=== PATIENT | female | born 1945 | race Caucasian/White ===

== ENCOUNTER 2023-01-18 09:55 | Outpatient (CLI) | payer MEDICARE, BC, SELFPAY ==
--- NOTE | 2023-01-18 10:49 | ECG_ITS ---
Measurements Intervals [place] Rate: 66 P: 138 AL: 155 QRS: 64 QRSD: 89 T: 45 QT: 411 QTc: 431 Interpretive Statements ATRIAL FLUTTER/TACHYCARDIA WITH NORMAL VENTRICULAR RATE INCOMPLETE RIGHT BUNDLE BRANCH BLOCK DELAYED PRECORDIAL R/S TRANSITION BASELINE ARTIFACT- I, III, AVR, AVL ABNORMAL ECG NO PREVIOUS ECG AVAILABLE FOR COMPARISON Electronically Signed On 01-18-2023 11:48:44 ETHICS MANAGER by Wild Almanza D.O.
[2023-01-18 11:33] LABS: Albumin Level 4.7 g/dL (3.5-5.1); Anion Gap 6 mmol/L (8-16); Blood Urea Nitrogen 24 mg/dL (7-17); Calcium 9.9 mg/dL (8.4-10.2); Carbon Dioxide 26 mmol/L (22-30); Chloride 103 mmol/L (98-107); Estimated Glomerular Filt Rate 48; Glucose 145 mg/dL (65-110); Potassium 5.4 mmol/L (3.4-5.0); Sodium 135 mmol/L (137-145)
[2023-01-18 11:35] LABS: Urine Cotinine NEGATIVE
[2023-01-18 11:45] LABS: Basophils Percent Auto 0.8 % (0.2-1.2); Eosinophils Absolute Auto 0.1 K/mm3 (0-0.3); Eosinophils Percent Auto 2.6 % (0-4.4); Hematocrit 44.5 % (37.0-47.0); Hemoglobin 14.7 g/dL (12.0-15.0); Immature Granulocyte Absolute 0.02 K/mm3 (0.00-0.031); Immature Granulocyte Percent A 0.4 % (0-0.5); Lymphocytes Absolute Auto 1.25 K/mm3 (0.9-3.2); Lymphocytes Percent Auto 23.6 % (18.3-44.2); Mean Corpuscular Hemoglobin 30.5 pg (26-34); Mean Corpuscular Volume 92.3 fl (80-100); Mean Platelet Volume 10.9 fl (7.4-10.4); Monocytes Absolute Auto 0.4 K/mm3 (0.1-0.6); Monocytes Percent Auto 7.2 % (2.6-8.5); Neutrophils Absolute Auto 3.5 K/mm3 (1.3-6.7); Neutrophils Percent Auto 65.4 % (45.5-73.1); Platelet Count Result 225 k/mm3 (150-375); Red Blood Count 4.82 M/mm3 (4.2-5.4); Red Cell Distribution Width 13.9 % (11.5-14.5); White Blood Count 5.3 K/mm3 (4.5-10.0)
[2023-01-18 12:29] LABS: Hemoglobin A1C 6.6 % (<5.7)
== END 2023-01-18 09:56 | disposition home or self-care (01) ==
LOC: ANHSURGERY 10:05
PROVIDERS: PCP Family Medicine Adolescent Medicine; Visit Provider Orthopaedic Surgery
DX: M17.12 Unilateral primary osteoarthritis, left knee (principal); Z01.818 Encounter for other preprocedural examination; I45.10 Unspecified right bundle-branch block
CPT/HCPCS: 80048; 80307; 82040; 83036; 85025; 87081; 93005

== ENCOUNTER 2023-02-07 09:36 | Outpatient (CLI) | payer MEDICARE, BC, SELFPAY ==
--- NOTE | ~2023-02-07 | NM_ITS ---
EXAMINATION: NM lc stress w perfusion DATE: 02/07/2023 14:09 INDICATION: Abnormal electrocardiogram. TECHNIQUE: Rest images were obtained following intravenous administration of 10 mCi Tc99m tetrofosmin (Myoview). The patient was infused intravenously with Lexiscan (regadenoson). Then, 30.8 mCi Tc99m t etrofosmin (Myoview) was administered intravenously, and stress images were obtained. Data was recons tructed into short axis and horizontal and vertical long axis SPECT images. Gated SPECT images were a lso obtained. COMPARISON: None. FINDINGS: There is no definite reversible or fixed perfusion abnormality to suggest ischemia or infar ction. There is no segmental wall motion abnormality. Left ventricular ejection fraction measures > 70%. IMPRESSION: 1. No definite ischemia or infarct. 2. Normal left ventricular ejection fraction measuring >70%. Reviewed, dictated and finalized at location A.
--- NOTE | 2023-02-07 09:56 | EST_ITS ---
Patient Info Name: Marilu Quintanilla Age: 77 years : 1945 Gender: Female Ht: 66 in Wt: 167 lbs BSA: 1.89 m2 HR: 66 bpm BP: 195 / 99 mmHg Heart Rhythm: Sinus Rhythm Exam Date: 02/07/2023 10:57 AM Exam Location: [facility] Stress Patient Status: Outpatient Admit Date: 02/07/2023 Staff Ordering Physician: Ruel Barfield MD Attending Provider: Ruel Barfield MD Exercise Technologist: Azeb Ho CT Exercise Physician: Wild Almanza DO Exam Type: CA stress lc w NM Study Info Indications Z01.810 - Encounter for preprocedural cardiovascular examination R94.31 - Abnormal electrocardiogram ECG EKG A regadenoson stress test was performed. Summary 1. 1. Negative lexiscan stress test for ischemic ST changes by ECG criteria. 2. 2. Baseline hypertension. 3. 3. Short runs of atrial tachycardia with lexiscan. 4. 4. Nuclear scan to follow and will be reported separately. Please correlate with it. 5. 5. Patient informed of the above results. Protocol: Lexiscan Stress ECG Details Stage: REST Duration (min): 6 min : 15 sec HR (bpm): 62 SBP (mmHg): 199 DBP (mmHg): 101 Stage: REST Duration (min): 14 min : 26 sec HR (bpm): 66 SBP (mmHg): 195 DBP (mmHg): 99 Stage: STAGE 1 Duration (min): 1 min : 0 sec HR (bpm): 77 SBP (mmHg): 188 DBP (mmHg): 106 Stage: RECOVERY Duration (min): 1 min : 0 sec HR (bpm): 102 SBP (mmHg): 188 DBP (mmHg): 106 Stage: RECOVERY Duration (min): 2 min : 0 sec HR (bpm): 76 SBP (mmHg): 188 DBP (mmHg): 106 Stage: RECOVERY Duration (min): 3 min : 0 sec HR (bpm): 85 SBP (mmHg): 199 DBP (mmHg): 107 Stage: RECOVERY Duration (min): 4 min : 0 sec HR (bpm): 68 SBP (mmHg): 199 DBP (mmHg): 107 Stage: RECOVERY Duration (min): 4 min : 44 sec HR (bpm): 78 SBP (mmHg): 194 DBP (mmHg): 106 Stage: RECOVERY Duration (min): 5 min : 0 sec HR (bpm): 84 SBP (mmHg): 194 DBP (mmHg): 106 Stage: RECOVERY Duration (min): 5 min : 4 sec HR (bpm): 86 SBP (mmHg): 194 DBP (mmHg): 106 Rest HR: 66 bpm Peak HR: 114 bpm Rest Sys BP: 195 mmHg Peak Sys BP: 199 mmHg Max Pred HR: 143 bpm % Max Pred HR: 80 % Target HR: 122 bpm Max RPP: 22,686 bpm*mmHg Termination Reason: Completed protocol Cardiac Symptoms: Shortness of breath Total Time: 1 min : 0 sec Rest Pete BP: 99 mmHg Peak Pete BP: 107 mmHg Total Dose: 0.4 mg Resting ECG Sinus rhythm. Stress ECG No ST changes. Arrhythmias Short runs of atrial tachycardia with lexiscan. Report Signatures
== END 2023-02-07 09:37 | disposition home or self-care (01) ==
PROVIDERS: PCP Family Medicine Adolescent Medicine; Visit Provider Family Medicine Adolescent Medicine
DX: M17.0 Bilateral primary osteoarthritis of knee (principal); R94.31 Abnormal electrocardiogram [ECG] [EKG]; I10 Essential (primary) hypertension
CPT/HCPCS: 78452; 93017; A9502; J2785

== ENCOUNTER 2023-02-15 15:38 | Observation (INO) | payer MEDICARE, BC, SELFPAY ==
[2023-01-18 09:41] VITALS: BMI 27.2
--- NOTE | 2023-01-18 09:41 | PC.NURSE ---
PRE-OP INSTRUCTIONS, PLEASE READ CAREFULLY Report to the Outpatient Waiting Room, entrance under the green pavilion located off [facility], at time _1000_ on date _02/14/23_. Planned Procedure Time: _1200_. PACK A SMALL OVERNIGHT BAG AND LEAVE IN THE CAR ALONG WITH YOUR WALKER Time changes happen often and if your time is changed the preop area will call you the afternoon before. - You and your visitor will be asked to self-screen and do not enter if you have any COVID symptoms. - Only one visitor is requested with a max of two and NO children visitors are allowed at this time. - The patient visitor may be requested to leave or wait in car when not with patient due to distancing restrictions. - A mask is optional within the hospital at this time. -VISITING HOURS 8AM-8PM Patients may have clear liquids (water, carbonated beverages, clear teas, apple juice) until 3 hours prior to surgery (0900 AM) with a maximum of 20 ounces. - No food from midnight until time of surgery Take the following medications with a SIP of water the morning of surgery: _ATENOLOL, PAROXETINE_ DO NOT STOP ANY OF YOUR OTHER PRESCRIPTION MEDICATIONS PRIOR TO SURGERY ?EXCEPT THE FOLLOWING Medications to discontinue per DR. REYNOLDS - _DICLOFENAC 7 DAYS PRIOR TO SURGERY, Date to take last dose 02/06/23_ Please no make-up, nail azeri, hairspray, perfume, deodorant, or body powder the day of surgery. No jewelry (including any body piercings) or valuables the day of surgery, leave them at home. Please take a shower or bath the night before, or the morning of, surgery with an antibacterial soap. Wear comfortable, loose fitting clothing. - Jewelry must be removed prior to entering the operating room. Rings and piercings that are not removed may be cut off. - The hospital will not accept responsibility for valuables. - Please leave all valuables, including medications, at home the day of surgery. If you are going home after surgery, a licensed tow truck driver must drive you home. - NO public transportation without another adult if you receive anesthesia. - We recommend that an adult stay with you for 24 hours following discharge. - We also recommend that you do not drive, make important decision, drink alcoholic beverages, or take any drugs that were not prescribed by your health care provider for at least 24 hours after your discharge time. Follow any additional instructions given to you from your surgeon. TOTAL JOINT CLASS 01/24/23 @ [address] [place] [address] ENTRANCE 2 - LOWER LEVEL If you or anyone in your household have experienced Covid symptoms in the past week, please notify your surgeon or the nurse liaison at the phone number below for possible testing. Instructions given to _PATIENT_and asked if any additional questions and then verbalized understanding. Patient advised to call surgeon office or pre surgery nurse liaison [phone] if any additional questions.
[2023-01-18 10:15] VITALS: BP 180/90; PULSE 64; RESP 18; TEMP 36.1; O2SAT 100
--- NOTE | 2023-02-12 11:53 | PM.IMHP ---
H&P: HPI History of Present Illness Date/Time: 02/12/23 11:53 Chief Complaint: Left knee DJD Narrative: 77-year-old female patient of Dr. Sanchez who presents today for a left total knee arthroplasty. Patient has been having symptoms for over 3 years. She has been on diclofenac which initially helped with her knee pain but at this point nonsurgical treatment is not giving her improvement of her symptoms. She has severe medial compartment osteoarthritis in both knees. She is having difficulty with daily activities due to the pain in the knees. Patient has reached a point where she feels she wishes to proceed with total knee arthroplasty with a continued nonsurgical treatment Review of Systems Review of Systems: All systems reviewed & are unremarkable except as noted in HPI and below PMFSH Surgical History Surgical History History of lumbar surgery Family History Family History Mother Carcinoma of colon Diabetes mellitus Hypertension Other Depression Social History Social History Smoking status: Former smoker Tobacco type: cigarettes Second hand tobacco smoke exposure: No Additional smoking assessment comments: STATES 1/2PK/DAY/OFF-ON 5-6YRS/QUIT -DENIES ALL FORMS OF TOBACCO USE Alcohol intake: current Drinks per week: 1 Alcohol use details: WINE Substance use: never Substance use type: does not use Living arrangements: with family Additional living arrangements comments: LIVES WITH SON ASHKAN Occupation/Education: retired Gender identity (if verbalized by the patient): Female Sexual Orientation (if Verbalized by the Patient): Straight or Heterosexual Spiritual care concerns: No Agree to blood products: Yes Meds Home Medications and Allergies Home Medications Medication Instructions Recorded Confirmed Type diclofenac sodium 75 mg See Rx Instructions .Route 04/12/22 01/22/23 Rx tablet,delayed release .COMPLEX #180 tabs atorvastatin 40 mg tablet See Rx Instructions .Route 05/16/22 01/22/23 Rx .COMPLEX #90 tabs atenolol 50 mg tablet 50 mg PO DAILY #90 tabs 06/29/22 01/22/23 Rx metformin 500 mg tablet,extended 2,000 mg PO DAILY #360 tabs 08/03/22 01/22/23 Rx release 24 hr paroxetine HCl 20 mg tablet 40 mg PO BID 01/18/23 01/22/23 History Allergies Allergy/AdvReac Type Severity Reaction Status Date / Time naproxen Allergy Mild Rash Verified 01/22/23 10:29 Exam Narrative: 77-year-old female alert pleasant. She is 5 ft 4 167 lb. Her BMI is 28.7. She walks with a pronounce varus thrust. Range of motion of the left knee is from 10-130 degrees. There is a varus deformity notable. Hip range of motion is full without discomfort. There is no definite effusion in the knee. No edema in lower extremities. 2+ dorsalis pedis and absent posterior artery pulse. Normal sensation to left lower extremity. Resp: Auscultation: clear to auscultation bilaterally Cardio: Rate: regular rate Rhythm: regular rhythm Assessment and Plan Assessment and plan (1) Left knee DJD: Code(s): M17.12 - Unilateral primary osteoarthritis, left knee Status: Acute Plan 77-year-old female who has severe medial compartment osteoarthritis in both knees. At this point she feels she is ready to proceed with surgery. Surgical procedure as well as the risks and complications were discussed in detail all questions were answered and we will proceed. She will see her primary care doctor for pre-surgical clearance. Nasal swab was negative. Chem panel is all within normal limits creatinine 1.10 GFR was slightly decreased at 48. Hemoglobin A1c is 6.6. Hemoglobin is 14.7 and platelets are 225. Plan use Eliquis for DVT prophylaxis postoperatively.
--- NOTE | 2023-02-13 12:58 | WPDANESEPPF ---
Anes - Initial Pre Proc Eval Procedure: Operation Date: 02/14/23 12:00 Proposed Procedures p Left Total Knee Arthroplasty - Marcus White MD Date/Time: 02/13/23 12:58 Surgeon: Marcus White MD Pre Op Diagnosis: severe varus OA Left Knee Patient Data Age: 77 Gender: F Height: 1.68 m Weight: 76.5 kg Last Vital Signs Temp 36.1 C L 01/18/23 10:15 Pulse 64 01/18/23 10:15 Resp 18 01/18/23 10:15 BP 180/90 H 01/18/23 10:15 Pulse Ox 100 01/18/23 10:15 O2 Del Method Room Air 01/18/23 10:15 Allergies Allergy/AdvReac Type Severity Reaction Status Date / Time naproxen Allergy Mild Rash Verified 01/22/23 10:29 Home Medications Medication Instructions Recorded Confirmed Type diclofenac sodium 75 mg See Rx Instructions .Route 04/12/22 01/22/23 Rx tablet,delayed release .COMPLEX #180 tabs atorvastatin 40 mg tablet See Rx Instructions .Route 05/16/22 01/22/23 Rx .COMPLEX #90 tabs atenolol 50 mg tablet 50 mg PO DAILY #90 tabs 06/29/22 01/22/23 Rx metformin 500 mg tablet,extended 2,000 mg PO DAILY #360 tabs 08/03/22 01/22/23 Rx release 24 hr paroxetine HCl 20 mg tablet 40 mg PO BID 01/18/23 01/22/23 History Patient hx anesthesia problems: none Family hx anesthesia problems: none Results Review: All pre-operative results and documents have been reviewed as part of the pre-operative evaluation. [facility] Past Medical History Medical History (Updated 02/13/23 @ 12:59 by Humble Chaudhry MD) Hypertension Major depressive disorder, recurrent, mild Osteoarthritis of knees, bilateral Pure hypercholesterolemia, unspecified Type 2 diabetes mellitus without complications Surgical History Surgical History History of lumbar surgery Family History Family History Mother Carcinoma of colon Diabetes mellitus Hypertension Other Depression Social History Social History Smoking status: Former smoker Tobacco type: cigarettes Second hand tobacco smoke exposure: No Additional smoking assessment comments: STATES 1/2PK/DAY/OFF-ON 5-6YRS/QUIT -DENIES ALL FORMS OF TOBACCO USE Alcohol intake: current Drinks per week: 1 Alcohol use details: WINE Substance use: never Substance use type: does not use Living arrangements: with family Additional living arrangements comments: LIVES WITH SON ASHKAN Occupation/Education: retired Gender identity (if verbalized by the patient): Female Sexual Orientation (if Verbalized by the Patient): Straight or Heterosexual Spiritual care concerns: No Agree to blood products: Yes Anes - Eval Final PreProcedure Day of Procedure 02/13/23 12:58 Patient weight: overweight Heart: regular rate and rhythm Lungs: clear to auscultation and normal air movement Airway: Mallampati scale class II Neurological: alert and oriented Last oral intake: >/= 8 hours ASA classification: III Emergent: no Anesthetic plan: proceed Anesthesia type and monitoring: general LMA Results Review: All pre-operative results and documents have been reviewed as part of the pre-operative evaluation. Informed Consent: The patient's anesthetic plan and its attendant risks and benefits were discussed with the patient/family/POA. Questions were solicited and answers provided to the satisfaction of the patient/family/POA.
[2023-02-14] VITALS (9 sets, daily range): BP systolic 134–174; BP diastolic 85–102; PULSE 64–136; RESP 11–22; TEMP 36–36.6; O2SAT 95–100
[2023-02-14] MEDS: LACTATED RINGERS 1,000 ML 30 ML IV CONT ×2 (10:35→17:18)
[2023-02-14] MEDS: TRANEXAMIC ACID 1,000MG/ISO100 1,000 MG/100 ML BAG 200 MG IVPB (10:40)
[2023-02-14] MEDS: ACETAMINOPHEN 500 MG TABLET 1000 MG PO ×2 (10:42→21:28)
[2023-02-14 11:26] LABS: Glucose Point of Care 139 mg/dl (65-105)
--- NOTE | 2023-02-14 11:39 | WPDHPUPDATE1 ---
History and Physical Update Update Date/Time: 02/14/23 11:39 History and Physical has been reviewed, including an updated exam of the patient. There are NO changes in the patient's condition. Risks, benefits, and alternatives have been discussed and questions answered. Patient agrees to proceed with procedure.
[2023-02-14] MEDS: ceFAZolin 2 GM/D5W 50 ML 2 GM/50 ML BAG IVPB (12:14)
[2023-02-14] MEDS: ceFAZolin SODIUM 1 GM VIAL 3 GM (13:03)
[2023-02-14] MEDS: GENTAMICIN BONE CEMENT REFOBACIN 1 EACH TOPICAL (13:04)
[2023-02-14] MEDS: TRANEXAMIC ACID 1,000 MG/10 ML AMPUL 1000 MG IV PUSH (16:06)
[2023-02-14] MEDS: ceFAZolin SODIUM 1 GM VIAL IV PUSH (16:06)
--- NOTE | 2023-02-14 17:19 | W.PM.PROC2 ---
Procedure Note - Detailed Date of Procedure 02/14/23 Pre-op Diagnosis severe varus OA Left Knee Post-op Diagnosis Same Procedure Performed Constrained left total knee arthroplasty Surgeon Marcus Whiet MD Executive Meeting Manager Ivett Wills Anesthesia General Description of Procedure Patient was brought to the operating room and general anesthesia was administered. The patient received 2 g of Ancef weight based vancomycin 1 g of tranexamic acid preoperatively. Under anesthesia there was approximately a 15 degree flexion contracture and fixed varus deformity. Standing radiographs demonstrated 18? anatomic axis varus alignment preop there was fragmentation of the medial margin the medial tibial plateau and pronounced distraction of the lateral joint space. Left knee was prepped draped usual fashion. Limb was exsanguinated tourniquet elevated to 300 mmHg. 7 in longitudinal midline incision was used and a standard parapatellar arthrotomy utilized. There was significant patellar [place]. The cartilage was in good condition and I felt that this would be suitable for non resurfacing after removed the osteophytes. A guide román was inserted down the femoral canal after aspiration of canal contents using the 5 degree valgus cutting bushing 9 mm of bone removed the distal femur. This removed the same oz medially laterally and seem like a generous cut relative to the depth that the trochlear groove. Next the tibial plateau was cut and we removed approximately 12 mm of bone from the lateral tibial plateau which gave us a skim cut medially almost through to the bottom posteromedial wear defect the tibial plateau. There was a bony fragment within the medial collateral ligament and I carefully debrided this with a rongeur on the grabbing the surface of bone and not cutting any the fibers. Provisional removal of tibial and femoral osteophytes was performed. A conservative capsule is was performed. At 90? the medial side was 8 mm space in lateral side 12. We applied the femoral sizing guide at 4? of external rotation which matched Whitesides line. The size 65 vanguard cutting block was applied the cava flush cut with the anterior cortex. The 62.5 was going to notch. Sixty-five fit and line medial to lateral as well. We had ample space for the 10 CR trial in flexion. In extension however the knee was quite tight medially gapping the lateral side open and lacking about 20?. Next we prepared the tibial component. The size 67 tibia fit line to line anteromedially and posterolaterally at the proper rotation reference off the medial 1/3 of the tibial tubercle. This was punched for the 80 mm finned stem modular tibial tray vanguard. 10 mm diameter shaft. This fit nicely. Next we addressed the large posteromedial osteophyte. We carefully peeled the posteromedial capsule to about 1 cm below the joint line centrally just below the large osteophyte and used a 2 mm drill to make multiple perforations to allow removal of the dense sclerotic osteophyte shelf of bone posteromedially and this was of accomplished. With this performed, the knee lacked about 10? of extension with no play with the 10 5 and 1 poly and very the 5 mm opening laterally and with varus stress it was clear that we would need to use constrained as I felt we had decompressed the medial collateral ligament to the extent possible without releasing it. Additional 2 mm of bone was removed from the distal femur and chamfer cuts revisited. Posterior femoral osteophyte was removed this time and this allowed us to perform a more thorough posterior capsular release that extended from the medial gastrocnemius insertion to lateral gastrocnemius insertion. With this accomplished the knee came to full extension with a 10 mm 5 and 1 insert with negative bounce in about 1 mm of medial opening in this position and about 6 mm of lateral opening. At 90? of flexion was seen to be fair stability to anterior drawer but more loose does 70 flexion to
[2023-02-14 17:37] LABS: Glucose Point of Care 209 mg/dl (65-105)
[2023-02-14] MEDS: fentaNYL CITRATE INJ (*CRX) 100 MCG/2 ML VIAL 25 MCG IV PUSH ×5 (17:38→18:21)
--- NOTE | 2023-02-14 20:49 | PC.NURSE ---
Spoke with ZOYA Cr regarding elevated BP and elevated HR while patient continues to be in Afib. Pending further orders. Patient at this time is asymptomatic and denies any CP, nausea, syncope or any other symptom. record maker aware and will keep patient in bed and quiet until orders received.
--- NOTE | 2023-02-14 21:10 | ECG_ITS ---
Measurements Intervals [place] Rate: 102 P: DC: 0 QRS: 79 QRSD: 90 T: -37 QT: 270 QTc: 353 Interpretive Statements ATRIAL FIBRILLATION WITH RAPID VENTRICULAR RESPONSE POSSIBLE RIGHT VENTRICULAR CONDUCTION DELAY [RSR (QR) IN V1/V2] NONSPECIFIC ST & T-WAVE ABNORMALITY COMPARED TO ECG 01/18/2023 11:17:30 ATRIAL FIBRILLATION NOW PRESENT T-WAVE ABNORMALITY NOW PRESENT Electronically Signed On 02-15-2023 10:38:15 CDT by Kiara Hanna M.D.
[2023-02-14 21:24] LABS: Glucose Point of Care 214 mg/dl (65-105)
[2023-02-14] MEDS: MORPHINE SULFATE (*CRX) 2 MG/ML INJ IV PUSH (21:27)
[2023-02-14] MEDS: SODIUM CHLORIDE 0.9% IV 1,000 ML 125 ML IV CONT (21:28)
[2023-02-14] MEDS: METOPROLOL TARTRATE 25 MG TABLET PO (21:42)
--- NOTE | 2023-02-14 21:45 | PC.NURSE ---
ZOYA Cr notified of abnormal EKG. Orders administered. Will continue to monitor patient's status for improvement or any further changes.
--- NOTE | 2023-02-14 22:45 | WPDCN ---
Assessment and Plan Assessment and plan (1) Left knee DJD: Code(s): M17.12 - Unilateral primary osteoarthritis, left knee Status: Acute Assessment and Plan: Postoperative day 0 status post left total knee arthroplasty. Wound care, pain control, and DVT prophylaxis deferred to Dr. White. Agree with PT/OT. Check baseline labs in a.m. (2) Atrial flutter: Code(s): I48.92 - Unspecified atrial flutter Status: Acute Assessment and Plan: Preop EKG last month showed atrial flutter, now appears to be in atrial fibrillation. She is currently on atenolol 50 mg daily and she is not on chronic anticoagulation. It is unclear how long she has been in this rhythm as she is asymptomatic. Echocardiogram ordered for a.m. She was given a dose of metoprolol 25 mg p.o. x1 this evening as her heart rate and blood pressures have been running high, with improvement. (3) Type 2 diabetes mellitus without complications: Code(s): E11.9 - Type 2 diabetes mellitus without complications Status: Acute Assessment and Plan: Resume metformin on discharge. Initiate sliding scale insulin, Accu-Cheks, and hypoglycemic protocol. Recent A1c was 6.6%. (4) Hypertension: Code(s): I10 - Essential (primary) hypertension Status: Acute Assessment and Plan: Blood pressures were reviewed and they have been running a bit high postoperatively. Continue antihypertensives and monitor. Plan Thank you for allowing us to participate in this patient's care. Please do not hesitate to contact us with any questions. HPI Data of Consult Date/Time: 02/14/23 22:45 Requesting Physician: Marcus White MD Consult Narrative Reason for consult: Postoperative medical management. Narrative: This is a 77-year-old female with type 2 diabetes mellitus, hypertension, hypercholesterolemia, atrial flutter, and osteoarthritis whom the hospitalist service has been consulted for help managing her medical conditions postoperatively. She has had longstanding pain in her left knee non amenable to conservative outpatient treatment and she elected for replacement today. Her surgery was performed under general anesthesia and there were no immediate complications documented. Postoperatively she was doing quite well and she has minimal pain as long as she is lying still. She has some aching discomfort when moving the knee but nothing significant. She has not yet got out of the bed to ambulate, however. She also denies postoperative fever, chills, chest pain, shortness a breath, nausea, and vomiting. No paresthesias, skin color, or temperature changes distal to the surgical site. I received a call from the patient's nurse this evening with reports that she was in atrial flutter/fibrillation with rates in the 120s. She is asymptomatic with that and has no sensations of racing heart, palpitations, or shortness of breath. She has no known history of cardiac dysrhythmia prior to last month when her preop EKG showed atrial flutter/tachycardia. She was sent for a stress test which was reportedly normal; she had short runs of atrial tachycardia at that time. She does not think she has had any other workup with regards to that and she is not on chronic anticoagulation. She has not had exertional chest pain, shortness a breath, syncope, or presyncope. She denies significant caffeine and alcohol use (1 cup of coffee a day, 2 to 3 small glasses of wine a week). She has no concerns for or symptoms of sleep apnea. Review of Systems Review of Systems: Twelve systems were reviewed and are negative except for as per HPI. [facility] Past Medical History Medical History Atrial flutter Hypertension Major depressive disorder, recurrent, mild Osteoarthritis of knees, bilateral Pure hypercholesterolemia, unspecified Type 2 diabetes mellitus without complications Surgical History Surgical His
[2023-02-15] VITALS (12 sets, daily range): BP systolic 115–132; BP diastolic 60–74; PULSE 55–127; RESP 16–20; TEMP 36.2–36.9; O2SAT 96–100
--- NOTE | ~2023-02-15 | XR_ITS ---
EXAMINATION: XR knee LT 3V DATE: 02/16/2023 14:28 INDICATION: Left knee injury. TECHNIQUE: 3 views of left knee were obtained. COMPARISON: Left knee radiographs 02/14/2023 FINDINGS: There is a total left knee arthroplasty with patellar resurfacing in near-anatomic alignmen t. No fracture. No periprosthetic lucency to suggest loosening or infection. There is gas in the soft tissues, consistent with recent surgery. There is anterior knee soft tissue swelling. No significant knee joint effusion. IMPRESSION: 1. Total left knee arthroplasty in near-anatomic alignment. Reviewed, dictated and finalized at location A.
--- NOTE | ~2023-02-15 | XR_ITS ---
EXAMINATION: XR knee RT 3V DATE: 02/16/2023 14:28 INDICATION: Right knee pain. TECHNIQUE: 3 views of right knee were obtained. COMPARISON: None. FINDINGS: There is varus angulation at the knee. No fracture. There is severe osteoarthritis of media l compartment, moderate osteoarthritis of patellofemoral compartment, and mild osteoarthritis of late ral compartment. No knee joint effusion. There are loose bodies in the joint. IMPRESSION: 1. Severe right knee osteoarthritis with loose bodies. Reviewed, dictated and finalized at location A.
--- NOTE | ~2023-02-15 | XR_ITS ---
EXAM: [id number] DATE: 02/14/2023 17:52 HISTORY: LT TOTAL KNEE . COMPARISON: None available. FINDINGS: Interval left knee arthroplasty. Arthroplasty components in good position. Subcutaneous an d intra-articular gas. No radiopaque foreign body. IMPRESSION: Expected postsurgical changes, with no radiographic evidence of procedure or hardware rel ated complication. Reviewed, dictated and finalized at location K. IMPRESSION: Expected postsurgical changes, with no radiographic evidence of pro cedure or hardware related complication.
[2023-02-15] MEDS: oxyCODONE HCL (*CRX) 5 MG TAB IR PO ×5 (00:30→21:01)
[2023-02-15] MEDS: ACETAMINOPHEN 500 MG TABLET 1000 MG PO ×4 (00:30→18:59)
[2023-02-15] MEDS: ceFAZolin 1 GM/NS 50 ML 1 GM/50 ML BAG IVPB ×3 (00:30→14:31)
[2023-02-15] MEDS: MORPHINE SULFATE (*CRX) 2 MG/ML INJ IV PUSH (04:54)
[2023-02-15 06:16] LABS: Basophils Percent Auto 0.4 % (0.2-1.2); Eosinophils Percent Auto 0.1 % (0-4.4); Hematocrit 35.9 % (37.0-47.0); Immature Granulocyte Absolute 0.05 K/mm3 (0.00-0.031); Immature Granulocyte Percent A 0.4 % (0-0.5); Lymphocytes Absolute Auto 1.21 K/mm3 (0.9-3.2); Lymphocytes Percent Auto 10.7 % (18.3-44.2); Mean Corpuscular HGB Conc 33.4 g/dl (32-36); Mean Corpuscular Hemoglobin 30.5 pg (26-34); Mean Corpuscular Volume 91.3 fl (80-100); Mean Platelet Volume 10.8 fl (7.4-10.4); Monocytes Absolute Auto 1.2 K/mm3 (0.1-0.6); Monocytes Percent Auto 10.8 % (2.6-8.5); Neutrophils Absolute Auto 8.8 K/mm3 (1.3-6.7); Neutrophils Percent Auto 77.6 % (45.5-73.1); Platelet Count Result 198 k/mm3 (150-375); Red Blood Count 3.93 M/mm3 (4.2-5.4); Red Cell Distribution Width 13.4 % (11.5-14.5); White Blood Count 11.4 K/mm3 (4.5-10.0)
[2023-02-15 06:31] LABS: Anion Gap 6 mmol/L (8-16); Blood Urea Nitrogen 17 mg/dL (7-17); Calcium 8.4 mg/dL (8.4-10.2); Carbon Dioxide 27 mmol/L (22-30); Chloride 97 mmol/L (98-107); Estimated CRCL calculation 43 ml/min; Estimated Glomerular Filt Rate > 60; Glucose 154 mg/dL (65-110); Magnesium 1.4 mg/dL (1.6-2.3); Potassium 4.1 mmol/L (3.4-5.0); Sodium 130 mmol/L (137-145)
--- NOTE | 2023-02-15 06:43 | PC.NURSE ---
Patient refused go try and sit up on the side of bed. Patient states she will wait until PT/OT comes in . Patient was not gotten up earlier in evening due to HR sustaining upwards of 130 in Afib RVR. Patient remains in Afib but HR has improved to 70-80s at this time. Patient has not converted.
[2023-02-15 07:10] LABS: Thyroid Stimulating Hormone Reflex 0.799 uIU/mL (0.465-4.68)
--- NOTE | 2023-02-15 07:15 | PM.PNORT ---
Subjective Subjective Date/Time Seen: 02/15/23 07:15 postop day 1 patient is alert. She is afebrile vital signs are stable. Morning labs are noted. Dressing is dry and intact. Neurovascularly she is intact. She has not been out of bed yet. Patient will work with physical therapy this morning as well as this afternoon. If she continues do well the plan will be discharge her home this afternoon once IV antibiotics have been completed. <ZOYA Lyman - Last Filed: 02/15/23 07:17> 12:54 p.m.: Patient had atrial fibrillation last night. She has history of atrial flutter in for this reason she was placed on a monitor bed. She did have tachycardia last evening associated with the a conversion to atrial fibrillation and hospitalist has recommended continued observation. An echocardiogram has been obtained this morning which demonstrated abnormal left ventricular diastolic function, systolic function 55-60% ejection fraction, atrial fibrillation, mild aortic valve sclerosis and regurgitation, mild mitral valve regurgitation mild tricuspid regurgitation and moderate pulmonary hypertension estimated PA pressure of 56 mm Hg I will order another CBC and BMP for the morning. 02/15/23 07:15 postop day 1 patient is alert. She is afebrile vital signs are stable. Morning labs are noted. Hemoglobin is 12. sodium 130. Creatinine 0.9. Dressing is dry and intact. Neurovascularly she is intact. She has not been out of bed yet. Patient will start physical therapy today. <Marcus White MD - Last Filed: 02/15/23 12:58> Objective Data Vital Signs Vital Signs: Vital Signs - 24 hr 02/14/23 10:16 02/14/23 17:25 02/14/23 17:40 Temperature 36.0 C L 36.6 C Pulse Rate 64 105 H 112 H Respiratory Rate 18 11 L 19 Blood Pressure 168/95 H 134/90 138/92 H Pulse Oximetry 100 100 99 Oxygen Delivery Room Air Simple Face Mask Simple Face Mask Oxygen Flow Rate 8 8 02/14/23 17:55 02/14/23 18:10 02/14/23 21:42 Temperature Pulse Rate 136 H 109 H 102 H Respiratory Rate 17 22 H Blood Pressure 154/85 H 137/95 H Pulse Oximetry 96 95 Oxygen Delivery Room Air Room Air Oxygen Flow Rate 02/14/23 20:21 02/14/23 23:10 02/14/23 20:00 Temperature 36.1 C L 36.1 C L Pulse Rate 101 H 127 H 127 H Respiratory Rate 16 16 Blood Pressure 174/102 H 153/90 H Pulse Oximetry 99 100 Oxygen Delivery Oxygen Flow Rate 02/15/23 00:00 02/15/23 03:35 02/15/23 04:00 Temperature 36.2 C L Pulse Rate 127 H 105 H 76 Respiratory Rate 16 Blood Pressure 128/71 Pulse Oximetry 98 Oxygen Delivery Oxygen Flow Rate <ZOYA Lyman - Last Filed: 02/15/23 07:17> Intake/Output Intake/Output: Intake & Output 02/12/23 02/13/23 02/14/23 02/15/23 23:59 23:59 23:59 23:59 Intake Total 1700 600 Output Total 300 Balance 1700 300 <ZOYA Lyman - Last Filed: 02/15/23 07:17> Meds/Results Medications: Active Medications Generic Name Dose Route Start Last Admin Trade Name Clarkeq PRN Reason Stop Dose Admin Acetaminophen 1,000 mg 02/14/23 19:00 02/15/23 06:00 Acetaminophen 500 Mg Tablet PO 1,000 mg Q6H DIMAS Administration Apixaban 2.5 mg 02/15/23 09:00 Apixaban 2.5 Mg Tablet PO Q12HR [facility] Atenolol 50 mg 02/15/23 09:00 Atenolol 50 Mg Tablet PO DAILY [facility] Atorvastatin Calcium 40 mg 02/15/23 09:00 Atorvastatin 40 Mg Tablet PO DAILY [facility] Celecoxib 100 mg 02/15/23 08:00 Celecoxib 100 Mg Capsule PO DAILY@0800 [facility] Dextrose 12.5 gm 02/14/23 23:42 Dextrose 50% 25 Gm/50 Ml Syringe IV PUSH PRN PRN Hypoglycemia Protocol Doxycycline Hyclate 100 mg 02/15/23 09:00 Doxycycline Hyclate 100 Mg Tablet PO 02/27/23 08:59 Q12HR [facility] Glucagon 1 mg 02/14/23 23:42 Glucagon For Inj 1 Mg Vial IM PRN PRN Hypoglycemia Protocol Glucose 15 gm 02/14/23 23:42 Glucose Oral Gel 15 Gm Of Glucse In 37.
--- NOTE | 2023-02-15 07:20 | PM.DS ---
DS: Admitting Diagnosis Discharge Date 02/15 <ZOYA Lyman - Last Filed: 02/15/23 07:23> Admitting Diagnosis Left knee DJD <ZOYA Lyman - Last Filed: 02/15/23 07:23> DS: Discharge Diagnosis Discharge Diagnosis (1) Left knee DJD: Code(s): M17.12 - Unilateral primary osteoarthritis, left knee <ZOYA Lyman - Last Filed: 02/15/23 07:23> Status: Acute <ZOYA Lyman - Last Filed: 02/15/23 07:23> DS: Summary Hospital Course Hospital Course: 77-year-old female underwent left total knee arthroplasty on 02/14. Underwent the procedure without complications. Postoperatively she has been afebrile vital signs are stable. She is on Eliquis for DVT prophylaxis. She is weight-bearing as tolerated. Patient's dressing is dry and intact. Labs are all stable postop day 1. Patient was advised to keep leg elevated home prevent swelling but to do her exercises of bending and straightening the knee on an hourly basis while at home. She has outpatient therapy starting next Sunday. She will go home on scheduled Tylenol as well as oxycodone 5 mg for pain control. She is on Celebrex 100 mg a day. She is on 2 week course of doxycycline due to her history of diabetes. She also go home on Senokot and MiraLax for constipation. Patient was advised any questions or concerns she is to call the office otherwise we will see her at her appointed dates <ZOYA Lyman - Last Filed: 02/15/23 07:23> 77-year-old female underwent left total knee arthroplasty on 02/14. Underwent the procedure without complications. However she was noted to be in atrial fibrillation in the recovery room which is a change from her usual atrial flutter and she was placed on a monitored bed overnight and was tachycardic in the 130s for short time. She is on Eliquis for DVT prophylaxis. She is weight-bearing as tolerated. Patient's dressing is dry and intact. Labs are all stable postop day 1. Patient was advised to keep leg elevated home prevent swelling but to do her exercises of bending and straightening the knee on an hourly basis while at home. She has outpatient therapy starting next Sunday. She will go home on scheduled Tylenol as well as oxycodone 5 mg for pain control. She is on Celebrex 100 mg a day. She is on 2 week course of doxycycline due to her history of diabetes. She also go home on Senokot and MiraLax for constipation. Patient was advised any questions or concerns she is to call the office otherwise we will see her at her appointed dates <Marcus White MD - Last Filed: 02/17/23 11:40> Time Spent with Patient Time attestation: Total time spent providing and/or coordinating discharge services: <ZOYA Lyman - Last Filed: 02/15/23 07:23> DS: Data Data Completed and Pending Labs on day of discharge: Labs from last 24 hours 02/15/23 02/15/23 02/15/23 05:55 05:55 05:55 WBC 11.4 H RBC 3.93 L Hgb 12.0 Hct 35.9 L MCV 91.3 MCH 30.5 MCHC 33.4 RDW 13.4 Plt Count 198 MPV 10.8 H Immature Gran % (Auto) 0.4 Neut % (Auto) 77.6 H Lymph % (Auto) 10.7 L [place] % (Auto) 10.8 H Eos % (Auto) 0.1 Baso % (Auto) 0.4 Lymph # (Auto) 1.21 [place] # (Auto) 1.2 H Eos # (Auto) 0.0 Baso # (Auto) 0.0 Abs Immat Gran (auto) 0.05 H Absolute Neuts (auto) 8.8 H Absolute Nucleated RBC 0.0 Nucleated RBC % 0.0 Sodium 130 L Potassium 4.1 Chloride 97 L Carbon Dioxide 27 Anion Gap 6 L BUN 17 Creatinine 0.90 Estim Creat Clear Calc 43 Estimated GFR > 60 Glucose 154 H POC Capillary Glucose Calcium 8.4 Magnesium 1.4 L TSH (Reflex) 0.799 Blood Type Antibody Screen 02/14/23 02/14/23 02/14/23 21:02 17:34 10:36 WBC RBC Hgb Hct MCV MCH MCHC RDW Plt Count MPV Immature Gran % (Auto) Neut % (Auto) Lymph % (Auto) [place] % (Auto) Eos % (A
[2023-02-15 07:49] LABS: Glucose Point of Care 166 mg/dl (65-105)
[2023-02-15] MEDS: MAGNESIUM SULFATE 3GM/D5W100ML 3 GM/100 ML BAG IVPB (09:11)
[2023-02-15] MEDS: APIXABAN 2.5 MG TABLET PO (09:12)
[2023-02-15] MEDS: CELECOXIB 100 MG CAPSULE PO (09:12)
[2023-02-15] MEDS: atenoloL 50 MG TABLET PO (09:12)
[2023-02-15] MEDS: PARoxetine 20 MG TABLET 40 MG PO ×2 (09:12→16:15)
[2023-02-15] MEDS: ATORVASTATIN 40 MG TABLET PO (09:12)
[2023-02-15] MEDS: metFORMIN HCL XR 500 MG TAB.SR.24H 2000 MG PO (09:17)
[2023-02-15] MEDS: SENNA/DOCUSATE SODIUM TABLET 2 TAB PO ×2 (09:17→16:15)
[2023-02-15] MEDS: DOXYCYCLINE HYCLATE 100 MG TABLET PO ×2 (09:17→21:02)
[2023-02-15] MEDS: polyethylene glycoL 3350 17 GM POWD.PACK PO (09:18)
--- NOTE | 2023-02-15 09:32 | WPDANESPN ---
Anes - Prog Note Post-Op Date/Time: 02/15/23 09:32 Cardiovascular status: normal Respiratory status: normal Airway patency: baseline Mental status: baseline Post-Op hydration status: normal Vital Signs: Last Vital Signs Temp 36.4 C 02/15/23 08:00 Pulse 68 02/15/23 09:12 Resp 16 02/15/23 08:00 BP 132/74 02/15/23 08:00 Pulse Ox 99 02/15/23 08:00 O2 Del Method Room Air 02/14/23 18:10 O2 Flow Rate 8 02/14/23 17:40 Pain Score (VAS): 01/19 I/O: Intake & Output 02/14/23 02/15/23 02/15/23 23:59 07:59 15:59 Intake Total 1300 600 Output Total 300 Balance 1300 300 Laboratory Tests 02/15/23 05:55 02/15/23 05:55 02/14/23 02/14/23 02/14/23 10:27 10:36 17:34 WBC RBC Hgb Hct MCV MCH MCHC RDW Plt Count MPV Immature Gran % (Auto) Neut % (Auto) Lymph % (Auto) [place] % (Auto) Eos % (Auto) Baso % (Auto) Lymph # (Auto) [place] # (Auto) Eos # (Auto) Baso # (Auto) Abs Immat Gran (auto) Absolute Neuts (auto) Absolute Nucleated RBC Nucleated RBC % Sodium Potassium Chloride Carbon Dioxide Anion Gap BUN Creatinine Estim Creat Clear Calc Estimated GFR Glucose POC Capillary Glucose 139 H 209 H Calcium Magnesium TSH (Reflex) Blood Type O Positive Antibody Screen Negative 02/14/23 02/15/23 02/15/23 21:02 05:55 05:55 WBC 11.4 H RBC 3.93 L Hgb 12.0 Hct 35.9 L MCV 91.3 MCH 30.5 MCHC 33.4 RDW 13.4 Plt Count 198 MPV 10.8 H Immature Gran % (Auto) 0.4 Neut % (Auto) 77.6 H Lymph % (Auto) 10.7 L [place] % (Auto) 10.8 H Eos % (Auto) 0.1 Baso % (Auto) 0.4 Lymph # (Auto) 1.21 [place] # (Auto) 1.2 H Eos # (Auto) 0.0 Baso # (Auto) 0.0 Abs Immat Gran (auto) 0.05 H Absolute Neuts (auto) 8.8 H Absolute Nucleated RBC 0.0 Nucleated RBC % 0.0 Sodium 130 L Potassium 4.1 Chloride 97 L Carbon Dioxide 27 Anion Gap 6 L BUN 17 Creatinine 0.90 Estim Creat Clear Calc 43 Estimated GFR > 60 Glucose 154 H POC Capillary Glucose 214 H Calcium 8.4 Magnesium 1.4 L TSH (Reflex) Blood Type Antibody Screen 02/15/23 02/15/23 05:55 07:45 WBC RBC Hgb Hct MCV MCH MCHC RDW Plt Count MPV Immature Gran % (Auto) Neut % (Auto) Lymph % (Auto) [place] % (Auto) Eos % (Auto) Baso % (Auto) Lymph # (Auto) [place] # (Auto) Eos # (Auto) Baso # (Auto) Abs Immat Gran (auto) Absolute Neuts (auto) Absolute Nucleated RBC Nucleated RBC % Sodium Potassium Chloride Carbon Dioxide Anion Gap BUN Creatinine Estim Creat Clear Calc Estimated GFR Glucose POC Capillary Glucose 166 H Calcium Magnesium TSH (Reflex) 0.799 Blood Type Antibody Screen Post-procedural complaints: none Patient Feedback: Patient satisfied with anesthetic care.
[2023-02-15 11:47] LABS: Glucose Point of Care 277 mg/dl (65-105)
--- NOTE | 2023-02-15 12:29 | PM.IMPN ---
Progress Note: A&P Assessment and Plan (1) Left knee DJD: Code(s): M17.12 - Unilateral primary osteoarthritis, left knee Status: Acute Assessment and Plan: Postoperative day 1 status post left total knee arthroplasty. Wound care, pain control, and DVT prophylaxis deferred to Ortho. Continue PT/OT. (2) Atrial flutter: Code(s): I48.92 - Unspecified atrial flutter Status: Acute Assessment and Plan: Preop EKG last month showed atrial fib/flutter. Repeat EKG continues to show arrhythmia- afib/flutter 50s to 120s overnight. Given metoprolol 25 mg PO x1 and resumed on oral atenolol 50 mg daily. It is unclear how long she has been in this rhythm as she is asymptomatic currently, but does endorse prior c/o palpitations with exertion. Echocardiogram shows moderate pulm hypertension, mild LVH, left atrial and right atrial enlargement, and LV diastolic dysfunction Increased eliquis 5 mg BID for afib. chads-vasc score 5. Has-bled score 1. Cardiology consulted for evaluation of new arrhythmia. Magnesium 1.4 and replaced with 3 grams mag sulfate to keep >2. Continue to monitor telemetry. (3) Type 2 diabetes mellitus without complications: Code(s): E11.9 - Type 2 diabetes mellitus without complications Status: Chronic Assessment and Plan: Resume metformin on discharge. Continue sliding scale insulin, Accu-Cheks, and hypoglycemic protocol. Recent A1c was 6.6%. (4) Hypertension: Code(s): I10 - Essential (primary) hypertension Status: Chronic Assessment and Plan: Blood pressures were reviewed and high immediate postoperative setting. BP 117/66 currently and hypertension may have had a pain component. Continue atenolol 50 mg daily. (5) Pulmonary hypertension: Code(s): I27.20 - Pulmonary hypertension, unspecified Status: Acute Assessment and Plan: noted on echocardiogram. check apnea link overnight for evaluation of OVIDIO that may be contributing to arrhythmia Plan Thank you for allowing us to participate in this patient's care. Please do not hesitate to contact us with any questions. Time Spent With Patient Time: 40 minutes time spent with patient assessment, patient education, review of labs, vitals and nursing documentation. All questions answered to the best of my ability. Subjective Date/time seen: 02/15/23 12:29 Interval history: She has some knee pain, but it is tolerable. She was unaware she had irregular heart rate. EKG 01/18/23 showed afib/flutter with normal ventricular rate. No c/o chest pain or SOB, but she does endorse intermittent episodes of palpitations prior to admission with exertion. No prior syncope or near syncope. Review of Systems Review of Systems: All systems reviewed & are unremarkable except as noted in HPI and below Exam Narrative: General: Well-developed older adult female lying in bed in no acute distress. HEENT: Normocephalic. PERRL, EOMI. Sclera anicteric. Oral mucosa moist. Neck: Supple. No JVD. Respiratory: Lungs are clear to auscultation bilaterally. RR regular and unlabored. Cardiovascular: Irregularly irregular rate and rhythm. Afib/flutter with slow ventricular rate 50s on telemetry. Gastrointestinal: Abdomen soft, nontender, and nondistended with positive bowel sounds. No guarding. Skin: Warm and dry. No rash or lesions on limited exam. Extremities: No cyanosis, clubbing, or edema. Radial and pedal pulses +2 bilaterally. Musculoskeletal: Left knee dressing is clean, dry, and intact. No significant swelling or bruising noted. Neurological: Alert and oriented x4. Cranial nerves 2-12 grossly intact. No gross focal deficits noted. +sensation BLE. Psychiatric: Pleasant and cooperative with normal mood and affect. Objective Data Vital Signs Vital Signs: Vital Signs - 24 hr 02/14/23 17:25 02/14/23 17:40 02/14/23 17:55 Temperature 97.8 F Pulse Rate 105 H 11
[2023-02-15] MEDS: INSULIN ASPART (*BKC) 100 UNITS/ML SUB-Q ×2 (12:57→17:24)
--- NOTE | 2023-02-15 14:12 | PCOTNOTE ---
At 14:12 nursing put OT eval on hold due to patient falling in room. Nurse reports that patient will not be discharging today due to onset of afib with RVR. Nurse reports that she will contact the doctor about the patient's fall. Will follow.
--- NOTE | 2023-02-15 15:31 | PM.CNCAR ---
Assessment and Plan Assessment and plan (1) Atrial flutter: Code(s): I48.92 - Unspecified atrial flutter Status: Acute Assessment and Plan: Asymptomatic. Rate is pao on Atenolol. [id number] 5. On Eliquis 5 mg BID. 02/15/23 Echo: EF 55-60%, diastolic dysfunction (E/e' 11), mod LAE, mild AI/MR/TR, RVSP 56 mmHg. No further cardiac workup is needed. Have her f/u with me in 1-2 weeks upon discharge. (2) Pure hypercholesterolemia, unspecified: Code(s): E78.00 - Pure hypercholesterolemia, unspecified Status: Acute Assessment and Plan: On Atorvastatin. (3) Hypertension: Code(s): I10 - Essential (primary) hypertension Status: Acute Assessment and Plan: Stable. History of Present Illness History of Present Illness Consult date/time: 02/15/23 15:31 Consult reason: Other (atrial flutter) Reason For Visit: severe varus OA Left Knee Narrative: 77 yr old woman had direct admit for left knee surgery which she had yesterday. She has a history of hypertension, dyslipidemia, DM, atrial flutter. Reports she is limited at walking short distances due to knee pain and would need right knee surgery in a few months also. Denies chest pain, sob, orthopnea, PND, edema, dizziness, palpitations. Review of Systems Review of Systems: All systems reviewed & are unremarkable except as noted in HPI and below Cardiovascular: Cardiovascular: Reports as per HPI, Denies chest pain, Denies irregular heart rhythm, Denies leg edema and Denies lightheadedness Respiratory: Respiratory: Reports as per HPI and Denies dyspnea Gastrointestinal: Gastrointestinal: Reports as per HPI and Denies abdominal pain Genitourinary: Genitourinary: Reports as per HPI and Denies dysuria Musculoskeletal: Musculoskeletal: Reports as per HPI and Reports arthralgias Neurologic: Reports as per HPI, Denies dizziness and Denies syncope [facility] Past Medical History Medical History (Updated 02/15/23 @ 12:31 by Sara Bravo APRN) Atrial flutter Hypertension Major depressive disorder, recurrent, mild Osteoarthritis of knees, bilateral Pure hypercholesterolemia, unspecified Type 2 diabetes mellitus without complications Surgical History Surgical History (Updated 02/14/23 @ 23:43 by Shaye Finch PA-C) History of lumbar surgery X2 History of total left knee replacement (02/14/23) Family History Family History Mother Carcinoma of colon Diabetes mellitus Hypertension Other Depression Social History Social History (Updated 02/14/23 @ 23:38 by Shaye Finch PA-C) Social History: Surrogate medical decision maker: Eduardo Quintanilla, son. Code status: Full code. Smoking packs per day: 0.75 Smoking cigarettes per day: 15.0 Smoking status: Former smoker Tobacco type: cigarettes Second hand tobacco smoke exposure: No Smoking end date: 02/10/93 Alcohol intake: current Drinks per week: 3 Alcohol use details: 2 to 3 small glasses of wine per week. Substance use: never Substance use type: does not use Lack of Transportation: No Lack of Food: Never True Current Housing: I Have Housing Concerned About Future Housing: No Difficulty Paying Gas/Electric Bills: No Difficulty Paying for Meds: No Currently Unemployed: No Education: Bachelor's Degree Difficulty w/ Childcare or Family Care: No Living arrangements: with family Additional living arrangements comments: Lives with son Eduardo in [place]. 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 Spiritual care concerns: No Agree to blood products: Yes Meds Home Medications and Allergies Home Medications Medication Instructions Recorded Confirmed Type atorvastatin 40 mg tablet See Rx Instructions .Route 05/16/22 02/14/23 Rx .COMPLEX #90 tabs atenolol 50 mg tablet 50 m
[2023-02-15 17:09] LABS: Glucose Point of Care 236 mg/dl (65-105)
[2023-02-15 20:38] LABS: Glucose Point of Care 201 mg/dl (65-105)
[2023-02-15] MEDS: APIXABAN 5 MG TABLET PO (21:02)
--- NOTE | 2023-02-15 23:41 | ECHO_ITS ---
Patient Info Name: Marilu Quintanilla Age: 77 years : 1945 Gender: Female Ht: 66 in Wt: 165 lbs BSA: 1.88 m2 HR: 67 bpm BP: 128 / 71 mmHg Heart Rhythm: Atrial Fibrillation Technical Quality: Good Exam Date: 02/15/2023 8:43 AM Exam Location: [facility] Patient Status: Outpatient Admit Date: 02/14/2023 Staff Ordering Physician: Shaye Finch PA-C Signs Cleaner: Reinier Wise, PERCY, RT Attending Provider: Marcus White MD Referring Physician: Josette SMITH; Exam Type: CA echo doppler color flow Study Info Indications I48.1 - Persistent atrial fibrillation Complete two-dimensional, color flow and Doppler transthoracic echocardiogram is performed. Strain analysis performed. Summary 1. Complete two-dimensional, color flow and Doppler transthoracic echocardiogram is performed. 2. Left ventricular chamber dimension is normal. 3. Left ventricular systolic function is normal, estimated at 55-60%. 4. There is mild concentric increased left ventricular wall thickness. 5. The left ventricular diastolic function is abnormal. 6. E/e' 11 is mildly elevated. 7. Global longitudinal strain is normal at -18.4%. 8. Atrial fibrillation. 9. Left atrial chamber dimension is moderately enlarged. 10. Right atrial chamber dimension is mildly enlarged. 11. There is mild aortic valve sclerosis. 12. There is mild aortic valve regurgitation. 13. There is mild mitral valve regurgitation. 14. There is mild tricuspid valve regurgitation. 15. Moderate pulmonary hypertension, estimated pulmonary arterial systolic pressure is 56 mmHg. Left Ventricle E/e' 11 is mildly elevated. Global longitudinal strain is normal at -18.4%. Atrial fibrillation. Left ventricular chamber dimension is normal. Left ventricular systolic function is normal, estimated at 55-60%. There is mild concentric increased left ventricular wall thickness. The left ventricular diastolic function is abnormal. Right Ventricle Right ventricular systolic function is normal and with normal TAPSE 1.8 cm. Right ventricular chamber dimension is normal. Left Atria Left atrial chamber dimension is moderately enlarged. Right Atria Right atrial chamber dimension is mildly enlarged. Aortic Valve The aortic valve is trileaflet. There is mild aortic valve sclerosis. There is no aortic valve stenosis. There is mild aortic valve regurgitation. Pulmonic Valve There is no pulmonic regurgitation. Mitral Valve There is no mitral valve stenosis. There is mild mitral valve regurgitation. Tricuspid Valve There is mild tricuspid valve regurgitation. Moderate pulmonary hypertension, estimated pulmonary arterial systolic pressure is 56 mmHg. Pericardium/Pleural There is no pericardial effusion. Inferior Vena Cava Normal inferior vena cava with >50% collapse upon inspiration consistent with normal right atrial pressure, 5 mmHg. Aorta The aortic root size at the sinus of Valsalva is normal. Left Ventricular Outflow Tract Name Value Normal LVOT 2D LVOT Diameter 2.0 cm LVOT Doppler LVOT Peak Gradient 2 mmHg
[2023-02-16] VITALS (7 sets, daily range): BP systolic 108–138; BP diastolic 60–83; PULSE 66–83; RESP 16–20; TEMP 36.4–36.6; O2SAT 97–100
[2023-02-16] MEDS: ACETAMINOPHEN 500 MG TABLET 1000 MG PO ×3 (05:10→18:00)
[2023-02-16 06:37] LABS: Basophils Percent Auto 0.4 % (0.2-1.2); Eosinophils Absolute Auto 0.2 K/mm3 (0-0.3); Eosinophils Percent Auto 1.9 % (0-4.4); Hemoglobin 11.1 g/dL (12.0-15.0); Immature Granulocyte Absolute 0.03 K/mm3 (0.00-0.031); Immature Granulocyte Percent A 0.4 % (0-0.5); Lymphocytes Absolute Auto 0.77 K/mm3 (0.9-3.2); Lymphocytes Percent Auto 9.2 % (18.3-44.2); Mean Corpuscular HGB Conc 33.6 g/dl (32-36); Mean Corpuscular Hemoglobin 30.9 pg (26-34); Mean Corpuscular Volume 91.9 fl (80-100); Mean Platelet Volume 11.1 fl (7.4-10.4); Monocytes Absolute Auto 0.8 K/mm3 (0.1-0.6); Monocytes Percent Auto 9.3 % (2.6-8.5); Neutrophils Absolute Auto 6.6 K/mm3 (1.3-6.7); Neutrophils Percent Auto 78.8 % (45.5-73.1); Platelet Count Result 154 k/mm3 (150-375); Red Blood Count 3.59 M/mm3 (4.2-5.4); Red Cell Distribution Width 13.5 % (11.5-14.5); White Blood Count 8.4 K/mm3 (4.5-10.0)
[2023-02-16 06:48] LABS: Anion Gap 8 mmol/L (8-16); Blood Urea Nitrogen 20 mg/dL (7-17); Carbon Dioxide 25 mmol/L (22-30); Chloride 104 mmol/L (98-107); Estimated CRCL calculation 39 ml/min; Estimated Glomerular Filt Rate 54; Glucose 214 mg/dL (65-110); Potassium 3.9 mmol/L (3.4-5.0); Sodium 137 mmol/L (137-145)
--- NOTE | 2023-02-16 07:38 | PM.PNORT ---
Subjective Subjective Date/Time Seen: 02/16/23 07:38 postop day 2 patient is alert. She is afebrile vital signs are stable. She has a flutter on her EKG. She had an echocardiogram yesterday which showed normal ejection fraction. Some moderate pulmonary hypertension. This point patient is asymptomatic and is comfortable. She has been having no chest pain shortness of breath. She is working well with physical therapy and her pain is under control. She has mild swelling in the left knee. Dressing is dry. She has no increased swelling in either lower extremity. We will see how she does today with physical therapy as well as any recommendations from Cardiology. Hopefully will be able to discharge the patient home later this afternoon. Patient's Eliquis was increased to 5 mg b.i.d. yesterday Objective Data Vital Signs Vital Signs: Vital Signs - 24 hr 02/15/23 08:00 02/15/23 09:12 02/15/23 09:10 Temperature 36.4 C Pulse Rate 80 68 Respiratory Rate 16 Blood Pressure 132/74 Pulse Oximetry 99 Oxygen Delivery Room Air 02/15/23 10:05 02/15/23 12:00 02/15/23 15:40 Temperature 36.3 C L Pulse Rate 60 Respiratory Rate 20 Blood Pressure 122/62 Pulse Oximetry 100 Oxygen Delivery Room Air Room Air 02/15/23 14:15 02/15/23 08:00 02/15/23 12:00 Temperature 36.8 C Pulse Rate 55 L 79 58 L Respiratory Rate 18 Blood Pressure 117/66 Pulse Oximetry 100 Oxygen Delivery 02/15/23 14:25 02/15/23 16:00 02/15/23 21:25 Temperature 36.8 C 36.9 C Pulse Rate 55 L 79 74 Respiratory Rate 18 16 Blood Pressure 117/66 115/60 Pulse Oximetry 100 96 Oxygen Delivery 02/15/23 21:10 02/16/23 00:00 02/16/23 04:00 Temperature Pulse Rate 74 74 74 Respiratory Rate Blood Pressure Pulse Oximetry Oxygen Delivery 02/15/23 20:00 02/16/23 05:41 Temperature 36.6 C Pulse Rate 75 Respiratory Rate 16 Blood Pressure 134/60 Pulse Oximetry 96 97 Oxygen Delivery Room Air Intake/Output Intake/Output: Intake & Output 02/13/23 02/14/23 02/15/23 02/16/23 23:59 23:59 23:59 23:59 Intake Total 1950 3270 Output Total 300 Balance 1950 2970 Meds/Results Medications: Active Medications Generic Name Dose Route Start Last Admin Trade Name Florina PRN Reason Stop Dose Admin Acetaminophen 1,000 mg 02/14/23 19:00 02/16/23 05:10 Acetaminophen 500 Mg Tablet PO 1,000 mg Q6H DIMAS Administration Apixaban 5 mg 02/15/23 21:00 02/15/23 21:02 Apixaban 5 Mg Tablet PO 5 mg Q12HR DIMAS Administration Atenolol 50 mg 02/15/23 09:00 02/15/23 09:12 Atenolol 50 Mg Tablet PO 50 mg DAILY DIMAS Administration Atorvastatin Calcium 40 mg 02/15/23 09:00 02/15/23 09:12 Atorvastatin 40 Mg Tablet PO 40 mg DAILY DIMAS Administration Celecoxib 100 mg 02/15/23 08:00 02/15/23 09:12 Celecoxib 100 Mg Capsule PO 100 mg DAILY@0800 DIMAS Administration Dextrose 12.5 gm 02/14/23 23:42 Dextrose 50% 25 Gm/50 Ml Syringe IV PUSH PRN PRN Hypoglycemia Protocol Doxycycline Hyclate 100 mg 02/15/23 09:00 02/15/23 21:02 Doxycycline Hyclate 100 Mg Tablet PO 02/27/23 08:59 100 mg Q12HR DIMAS Administration Glucagon 1 mg 02/14/23 23:42 Glucagon For Inj 1 Mg Vial IM PRN PRN Hypoglycemia Protocol Glucose 15 gm 02/14/23 23:42 Glucose Oral Gel 15 Gm Of Glucse In 37.5 Gm Tube PO PRN PRN Hypoglycemia Protocol Dextrose 1,000 mls @ 100 mls/hr 02/14/23 23:42 Dextrose 5% 1,000 Ml IVPB PRN PRN Hypoglycemia Protocol Insulin Aspart 2 - 5 units 02/15/23 08:00 02/15/23 17:24 Insulin Aspart (*Bkc) 100 Units/Ml SUB-Q 2 units TIDWM DIMAS Administration Protocol Metformin HCl 2,000 mg 02/15/23 09:00 02/15/23 09:17 Metformin Hcl Xr 500 Mg Tab.Sr.24h PO 2,000 mg DAILY DIMAS Administration Morphine Sulfate 2 mg 02/14/23 18:36 02/15/23 04:54 Morphine Sulfate (*Cr
[2023-02-16 07:50] LABS: Glucose Point of Care 202 mg/dl (65-105)
--- NOTE | 2023-02-16 07:51 | PM.IMPN ---
Progress Note: A&P Assessment and Plan (1) Left knee DJD: Qualifiers: Osteoarthritis type: primary Qualified Code(s): M17.12 - Unilateral primary osteoarthritis, left knee Code(s): M17.12 - Unilateral primary osteoarthritis, left knee Status: Acute Assessment and Plan: Postoperative day 2 status post left total knee arthroplasty. Wound care, pain control, and DVT prophylaxis deferred to Ortho. Continue PT/OT. (2) Atrial flutter: Qualifiers: Atrial flutter type: unspecified Qualified Code(s): I48.92 - Unspecified atrial flutter Code(s): I48.92 - Unspecified atrial flutter Status: Acute Assessment and Plan: Preop EKG last month showed atrial fib/flutter. Repeat EKG continues to show arrhythmia- afib/flutter 50s to 120s overnight. Given metoprolol 25 mg PO x1 and resumed on oral atenolol 50 mg daily. It is unclear how long she has been in this rhythm as she is asymptomatic currently, but does endorse prior c/o palpitations with exertion. Echocardiogram shows moderate pulm hypertension, mild LVH, left atrial and right atrial enlargement, and LV diastolic dysfunction Increased eliquis 5 mg BID for afib. chads-vasc score 5. Has-bled score 1. Cardiology consulted for evaluation of new arrhythmia. Magnesium 1.4 and replaced with 3 grams mag sulfate to keep >2. Continue to monitor telemetry. 02/07/23 Lexiscan negative ischemia or infarct, EF >70% Stable. Follow up outpatient with Cardiology in 1-2 weeks and continue Eliquis 5 mg PO BID afib dose indefinite or until stopped by Cardiology for stroke prevention. (3) Type 2 diabetes mellitus without complications: Qualifiers: Diabetes mellitus shelter insulin use: without termite technician use Qualified Code(s): E11.9 - Type 2 diabetes mellitus without complications Code(s): E11.9 - Type 2 diabetes mellitus without complications Status: Chronic Assessment and Plan: Continued on metformin 2000 mg XL daily Continue sliding scale insulin, Accu-Cheks, and hypoglycemic protocol. Recent A1c was 6.6%. Dexamethasone 4 mg IV given preop and may be contributing to elevated glucose postop as A1c is controlled on current oral regimen changed to consistent carb diet (4) Hypertension: Qualifiers: Hypertension type: primary hypertension Qualified Code(s): I10 - Essential (primary) hypertension Code(s): I10 - Essential (primary) hypertension Status: Chronic Assessment and Plan: Blood pressures were reviewed and high immediate postoperative setting. BP 115/60 to 134/60 currently and hypertension may have had a pain component. Continue atenolol 50 mg daily. Stable (5) Pulmonary hypertension: Code(s): I27.20 - Pulmonary hypertension, unspecified Status: Acute Assessment and Plan: noted on echocardiogram. check apnea link overnight for evaluation of OVIDIO- shows <5 AHI (2.4) and <2 minute desaturation <89% Consider PFT testing outpatient given smoking history Plan Thank you for allowing us to participate in this patient's care. Please do not hesitate to contact us with any questions. Time Spent With Patient Time with patient: 15 - 25 minutes Subjective Date/time seen: 02/16/23 07:51 Interval history: Patient found sitting up in the chair. She reports moderate knee pain following physical therapy. She denies paresthesia, chest pain, shortness a breath, palpitations, dizziness, abdominal pain, nausea, vomiting, or urinary changes. She has not had a bowel movement as of yet, but denies GI symptoms and is tolerating diet. Telemetry shows atrial flutter 60s with occasional PVCs. Review of Systems Review of Systems: All systems reviewed & are unremarkable except as noted in HPI and below Exam Narrative: General: Well-developed older adult female lying in bed in no acute distress. HEENT: Normocephalic. PERRL, EOMI. Sclera anicteric. Ora
--- NOTE | 2023-02-16 08:29 | PM.DS ---
DS: Admitting Diagnosis Discharge Date 02/16 <ZOYA Lyman - Last Filed: 02/16/23 08:32> Admitting Diagnosis left knee DJD <ZOYA Lyman - Last Filed: 02/16/23 08:32> DS: Discharge Diagnosis Discharge Diagnosis (1) Left knee DJD: Code(s): M17.12 - Unilateral primary osteoarthritis, left knee <ZOYA Lyman - Last Filed: 02/16/23 08:32> Status: Acute <ZOYA Lyman - Last Filed: 02/16/23 08:32> DS: Summary Hospital Course Hospital Course: This is an addendum to discharge summary of 02/15 77-year-old female underwent left total knee arthroplasty on 02/14. She was scheduled to be discharged home on 02/15. She did develop rapid response a flutter. This happened on postop day 1. Cardiology was consulted. Patient had echocardiogram done. Apparently patient has atrial flutter is new onset, it was noted pre screening EKG. Patient did have a stress test done was cleared from cardiology. Patient had no symptoms of the a flutter postop day 1. She did have a slight fall on postop day 1 this was felt due to narcotics. Patient had no shortness of breath or chest pain or flutter in the chest that she noted. Cardiology did switch her to Eliquis 5 mg b.i.d. and she is going to be on this chronically now for life. We have stopped Celebrex. Otherwise she is doing well. Her knee only has some mild swelling to his. Her pain is well controlled with scheduled Tylenol as well as oxycodone 5 mg as needed. Patient be discharged to home 02/16 <ZOYA Lyman - Last Filed: 02/16/23 08:32> This is an addendum to discharge summary of 02/15 77-year-old female underwent left total knee arthroplasty on 02/14. She was scheduled to be discharged home on 02/15. She did develop rapid response a flutter. This happened on postop day 1. Cardiology was consulted. Patient had echocardiogram done. Apparently patient has atrial flutter is new onset, it was noted pre screening EKG. Patient did have a stress test done was cleared from cardiology. Patient had no symptoms of the a flutter postop day 1. She did have a slight fall on postop day 1 this was felt due to narcotics. Patient had no shortness of breath or chest pain or flutter in the chest that she noted. Cardiology did switch her to Eliquis 5 mg b.i.d. and she is going to be on this chronically now for life. We have stopped Celebrex. Otherwise she is doing well. Her knee only has some mild swelling to his. Her pain is well controlled with scheduled Tylenol. He received 1 dose of oxycodone we switched to a p.r.n. basis after complaining of pain yesterday morning and yesterday afternoon she impulsively got up out of bed without calling the nurse without clicking or reaching for a walker having for gotten that she had had surgery and she fell on the floor again this time landing on her knees. The nurse ordered x-rays of both knees and I have reviewed these. She has known advanced medial compartment osteoarthritis in the right knee with varus deformity and her left knee replacement that was done 3 days ago showed no radiographic complication. There is no subluxation or fracture noted. Today she is up walking in the room and I walked with her. She tends to walk with her knee flexed about 20? simulating the position she is had the knee in for several years have encouraged her to practice stepping down with the knee as straight as she can comfortably achieve and practice on having a normal gait. Her Mepilex dressing is completely dry. She has had no bleeding. She has only mild swelling very normal after this type of surgery and less than average I think for the extensive surgery she had correcting a severe varus deformity and flexion contracture. I ordered tramadol 25 mg for her for pain 7-10 yesterday afternoon and she has not used it. Her pain is about 3/10 when she is up moving around and at rest in bed she has no pain. I have discussed with her cooper
[2023-02-16] MEDS: SENNA/DOCUSATE SODIUM TABLET 2 TAB PO ×2 (08:45→18:00)
[2023-02-16] MEDS: polyethylene glycoL 3350 17 GM POWD.PACK PO (08:46)
[2023-02-16] MEDS: PANTOPRAZOLE 40 MG TABLET PO (08:47)
[2023-02-16] MEDS: DOXYCYCLINE HYCLATE 100 MG TABLET PO ×2 (08:47→21:22)
[2023-02-16] MEDS: PARoxetine 20 MG TABLET 40 MG PO ×2 (08:47→18:00)
[2023-02-16] MEDS: metFORMIN HCL XR 500 MG TAB.SR.24H 2000 MG PO (08:47)
[2023-02-16] MEDS: APIXABAN 5 MG TABLET PO ×2 (08:47→21:22)
[2023-02-16] MEDS: ATORVASTATIN 40 MG TABLET PO (08:47)
[2023-02-16] MEDS: MORPHINE SULFATE (*CRX) 2 MG/ML INJ IV PUSH (08:48)
[2023-02-16] MEDS: INSULIN ASPART (*BKC) 100 UNITS/ML SUB-Q ×2 (08:49→12:23)
[2023-02-16] MEDS: atenoloL 50 MG TABLET PO (09:25)
[2023-02-16 12:06] LABS: Glucose Point of Care 221 mg/dl (65-105)
--- NOTE | 2023-02-16 14:44 | PM.PNORT ---
Progress Note: A&P Assessment and Plan (1) Left knee DJD: Code(s): M17.12 - Unilateral primary osteoarthritis, left knee Status: Acute Assessment and Plan: I was just notified patient got up by herself and did not use the walker and she fell knees. The nurse talked to her and patient told the nurse that she knew she was supposed to use the walker but simply decided to. X-rays of both knees were obtained which showed a knee replacement without complication or fracture and the right knee with severe medial compartment osteoarthritis without fracture. She was put into bed after the x-rays the nurse left the room for minute again the patient tried to get up by herself to use the bathroom without reaching for her walker. She seemed alert and oriented and it is unclear why she is not following instructions. I am going to stop the oxycodone altogether. She has only had 1 pill and that was earlier this morning that might be causing her to have some mild confusion. She is on pharmacologic strength Eliquis now 5 mg twice daily so she is not a candidate for the Celebrex at all. She can take Tylenol on a scheduled basis which we have ordered and I will discontinue the oxycodone. I will order 25 mg tramadol as needed for severe pain and we will observe her overnight have her go through therapy again tomorrow and make sure she is compliant with using the walker prior to discharge. She cannot be discharged now if she is not following the instructions and falling as this would be unsafe. Subjective Subjective Date/Time Seen: 02/16/23 14:44 Objective Data Vital Signs Vital Signs: Vital Signs - 24 hr 02/15/23 15:40 02/15/23 16:00 02/15/23 21:25 Temperature 36.9 C Pulse Rate 79 74 Respiratory Rate 16 Blood Pressure 115/60 Pulse Oximetry 96 Oxygen Delivery Room Air 02/15/23 21:10 02/16/23 00:00 02/16/23 04:00 Temperature Pulse Rate 74 74 74 Respiratory Rate Blood Pressure Pulse Oximetry Oxygen Delivery 02/15/23 20:00 02/16/23 05:41 02/16/23 08:45 Temperature 36.6 C Pulse Rate 75 Respiratory Rate 16 Blood Pressure 134/60 Pulse Oximetry 96 97 Oxygen Delivery Room Air Room Air 02/16/23 08:00 02/16/23 12:00 02/16/23 14:18 Temperature 36.4 C Pulse Rate 69 66 83 Respiratory Rate 20 Blood Pressure 108/80 Pulse Oximetry 100 Oxygen Delivery Intake/Output Intake/Output: Intake & Output 02/13/23 02/14/23 02/15/23 02/16/23 23:59 23:59 23:59 23:59 Intake Total 1950 3270 120 Output Total 300 Balance 1950 2970 120 Meds/Results Medications: Active Medications Generic Name Dose Route Start Last Admin Trade Name Clarke PRN Reason Stop Dose Admin Acetaminophen 1,000 mg 02/14/23 19:00 02/16/23 12:23 Acetaminophen 500 Mg Tablet PO 1,000 mg Q6H DIMAS Administration Apixaban 5 mg 02/15/23 21:00 02/16/23 08:47 Apixaban 5 Mg Tablet PO 5 mg Q12HR DIMAS Administration Atenolol 50 mg 02/15/23 09:00 02/16/23 09:25 Atenolol 50 Mg Tablet PO 50 mg DAILY DIMAS Administration Atorvastatin Calcium 40 mg 02/15/23 09:00 02/16/23 08:47 Atorvastatin 40 Mg Tablet PO 40 mg DAILY DIMAS Administration Celecoxib 100 mg 02/15/23 08:00 02/16/23 08:49 Celecoxib 100 Mg Capsule PO Not Given DAILY@0800 DIMAS Dextrose 12.5 gm 02/14/23 23:42 Dextrose 50% 25 Gm/50 Ml Syringe IV PUSH PRN PRN Hypoglycemia Protocol Doxycycline Hyclate 100 mg 02/15/23 09:00 02/16/23 08:47 Doxycycline Hyclate 100 Mg Tablet PO 02/27/23 08:59 100 mg Q12HR DIMAS Administration Glucagon 1 mg 02/14/23 23:42 Glucagon For Inj 1 Mg Vial IM PRN PRN Hypoglycemia Protocol Glucose 15 gm 02/14/23 23:42 Glucose Oral Gel 15 Gm Of Glucse In 37.5 Gm Tube PO PRN PRN Hypoglycemia Protocol Dextrose 1,000 mls @ 100 mls/hr 02/14/23 23:42 Dextrose 5% 1,000 Ml IVPB PRN PRN Hypo
[2023-02-16 16:43] LABS: Glucose Point of Care 167 mg/dl (65-105)
[2023-02-17 00:18] LABS: Glucose Point of Care 156 mg/dl (65-105)
[2023-02-17] MEDS: ACETAMINOPHEN 500 MG TABLET 1000 MG PO ×3 (00:31→12:20)
[2023-02-17 04:58] VITALS: BP 155/88; PULSE 78; RESP 14; TEMP 36.1; O2SAT 100
[2023-02-17 07:48] LABS: Glucose Point of Care 166 mg/dl (65-105)
[2023-02-17 08:00] VITALS: PULSE 78; RESP 14; O2SAT 100
[2023-02-17 09:04] VITALS: PULSE 78
[2023-02-17] MEDS: PANTOPRAZOLE 40 MG TABLET PO (09:04)
[2023-02-17] MEDS: PARoxetine 20 MG TABLET 40 MG PO (09:04)
[2023-02-17] MEDS: atenoloL 50 MG TABLET PO (09:04)
[2023-02-17] MEDS: metFORMIN HCL XR 500 MG TAB.SR.24H 2000 MG PO (09:04)
[2023-02-17] MEDS: APIXABAN 5 MG TABLET PO (09:04)
[2023-02-17] MEDS: DOXYCYCLINE HYCLATE 100 MG TABLET PO (09:04)
[2023-02-17] MEDS: SENNA/DOCUSATE SODIUM TABLET 2 TAB PO (09:04)
[2023-02-17] MEDS: ATORVASTATIN 40 MG TABLET PO (09:04)
[2023-02-17] MEDS: polyethylene glycoL 3350 17 GM POWD.PACK PO (09:05)
[2023-02-17 11:54] LABS: Glucose Point of Care 161 mg/dl (65-105)
[2023-02-17 13:05] LABS: Folic Acid 4.2 ng/mL (2.76->20)
--- NOTE | 2023-02-17 15:01 | PM.IMPN ---
Progress Note: A&P Assessment and Plan (1) Left knee DJD: Qualifiers: Osteoarthritis type: primary Qualified Code(s): M17.12 - Unilateral primary osteoarthritis, left knee Code(s): M17.12 - Unilateral primary osteoarthritis, left knee Status: Acute Assessment and Plan: Postoperative day 2 status post left total knee arthroplasty. Wound care, pain control, and DVT prophylaxis deferred to Ortho. Continue PT/OT. (2) Atrial flutter: Qualifiers: Atrial flutter type: unspecified Qualified Code(s): I48.92 - Unspecified atrial flutter Code(s): I48.92 - Unspecified atrial flutter Status: Acute Assessment and Plan: Preop EKG last month showed atrial fib/flutter. Repeat EKG continues to show arrhythmia- afib/flutter 50s to 120s overnight. Given metoprolol 25 mg PO x1 and resumed on oral atenolol 50 mg daily. It is unclear how long she has been in this rhythm as she is asymptomatic currently, but does endorse prior c/o palpitations with exertion. Echocardiogram shows moderate pulm hypertension, mild LVH, left atrial and right atrial enlargement, and LV diastolic dysfunction Increased eliquis 5 mg BID for afib. chads-vasc score 5. Has-bled score 1. Cardiology consulted for evaluation of new arrhythmia. Magnesium 1.4 and replaced with 3 grams mag sulfate to keep >2. Continue to monitor telemetry. 02/07/23 Lexiscan negative ischemia or infarct, EF >70% Stable. Follow up outpatient with Cardiology in 1-2 weeks and continue Eliquis 5 mg PO BID afib dose indefinite or until stopped by Cardiology for stroke prevention. (3) Type 2 diabetes mellitus without complications: Qualifiers: Diabetes mellitus [facility] insulin use: without truck terminal manager use Qualified Code(s): E11.9 - Type 2 diabetes mellitus without complications Code(s): E11.9 - Type 2 diabetes mellitus without complications Status: Chronic Assessment and Plan: Continued on metformin 2000 mg XL daily Continue sliding scale insulin, Accu-Cheks, and hypoglycemic protocol. Recent A1c was 6.6%. Dexamethasone 4 mg IV given preop and may be contributing to elevated glucose postop as A1c is controlled on current oral regimen changed to consistent carb diet (4) Hypertension: Qualifiers: Hypertension type: primary hypertension Qualified Code(s): I10 - Essential (primary) hypertension Code(s): I10 - Essential (primary) hypertension Status: Chronic Assessment and Plan: Blood pressures were reviewed and high immediate postoperative setting. BP 115/60 to 134/60 currently and hypertension may have had a pain component. Continue atenolol 50 mg daily. Stable (5) Pulmonary hypertension: Code(s): I27.20 - Pulmonary hypertension, unspecified Status: Acute Assessment and Plan: noted on echocardiogram. check apnea link overnight for evaluation of OVIDIO- shows <5 AHI (2.4) and <2 minute desaturation <89% Consider PFT testing outpatient given smoking history (6) Fall: Code(s): W19.XXXA - Unspecified fall, initial encounter Status: Acute Assessment and Plan: Neuro exam unremarkable. TSH within normal limits. Folate within normal limits. B12 low 208 and recommend starting supplements, especially as patient is taking metformin. I discussed this result with the patient. Plan Thank you for allowing us to participate in this patient's care. Please do not hesitate to contact us with any questions. Time Spent With Patient Time with patient: 15 - 25 minutes Subjective Date/time seen: 02/17/23 15:01 Interval history: She reports feeling well today. Yesterday afternoon she fell 2 times and was found by the nursing staff. She states she tripped while attempting to get her clothes together to go home. She states that she was not using her walker to ambulate and is unsure why. She denies dizziness, palpitations, chest pain, SOB, s
== END 2023-02-17 14:05 | disposition home or self-care (01) ==
LOC: ANHSURGERY 16:59 → ANH3MEDSUR 16:59
PROVIDERS: Nurse Practitioner Family; Physician Assistant; Admitting Provider Orthopaedic Surgery; PCP Family Medicine Adolescent Medicine; Visit Provider Orthopaedic Surgery
PROC: (CPT 27447; principal; 2023-02-14 12:00)
DX: M17.12 Unilateral primary osteoarthritis, left knee (principal); M21.162 Varus deformity, not elsewhere classified, left knee; I10 Essential (primary) hypertension; F32.9 Major depressive disorder, single episode, unspecified; E11.9 Type 2 diabetes mellitus without complications; E78.00 Pure hypercholesterolemia, unspecified; F10.90 Alcohol use, unspecified, uncomplicated; I48.91 Unspecified atrial fibrillation; I48.92 Unspecified atrial flutter; R00.0 Tachycardia, unspecified; I27.20 Pulmonary hypertension, unspecified; I08.3 Combined rheumatic disorders of mitral, aortic and tricuspid valves; E66.3 Overweight; Z68.26 Body mass index [BMI] 26.0-26.9, adult; Z87.891 Personal history of nicotine dependence; Z79.01 Long term (current) use of anticoagulants; Z79.4 Long term (current) use of insulin; Z79.84 Long term (current) use of oral hypoglycemic drugs; Z79.899 Other long term (current) drug therapy; Z83.3 Family history of diabetes mellitus; Z82.49 Family history of ischemic heart disease and other diseases of the circulatory system
CPT/HCPCS: 27447; 36415; 73560; 73562; 80048; 80307; 82040; 82607; 82746; 82948; 83036; 83735; 84443; 85025; 86850; 86900; 86901; 87081; 93005; 93306; 94762; 97110; 97116; 97161; 97165; 97535; A9270; C1713; C1776; G0378; J0171; J0690; J1100; J1170; J1815; J2270; J2405; J2704; J2795; J3010; J3370; J3475; J7030; J7120

== ENCOUNTER 2023-03-20 08:59 | Outpatient (CLI) | payer MEDICARE, BC, SELFPAY ==
--- NOTE | 2023-04-10 11:33 | WPDSLEEPSTUD ---
Sleep Study Date of Study: 03/20/23 Ordering Provider: Wild Almanza DO Interpreting Physician: Keisha Adams DO Sleep Study Type: Polysomnogram Height: 1.68 m Weight: 72.575 kg Body Mass Index: 25.8 Neck Circumference (inches): 14 Butler: 4 Reason for Sleep Study Atrial flutter. Need to rule out OVIDIO as underlying cause. Sleep History The patient is a 77-year-old female with atrial flutter, hypertension, depression, hyperlipidemia, type 2 diabetes, bilateral osteoarthritis of the knees, history of tobacco use the B12 deficiency that had a sleep study ordered by her voucher examiner for evaluation of sleep apnea. The patient denies awakening from sleep short of breath. She denies awakening at night with heartburn, belching or cough. She denies snoring. She denies having trouble sleeping when she has a cold. She denies waking up gasping for air throughout the night. She denies having breathing problems at night observed by herself or others. She denies sweating excessively at night. She denies having heart palpitations or irregular heartbeats during the night. She occasionally falls asleep during the day but never while driving. She denies sleep paralysis, cataplexy and hypnagogic / hypnopompic hallucinations. She denies having trouble at school or work due to sleepiness. She denies feeling afraid of going to sleep. She denies having nightmares. She occasionally remembers her dreams. She denies having thoughts racing through her mind. She occasionally feels sad, depressed and anxious. She denies having muscular tension. She denies noticing parts of her body jerk. She denies kicking during the night. She denies having crawling and aching feelings in her legs and denies having leg pain during the night. She denies grinding her teeth during sleep and denies awakening with morning jaw pain. She is rarely bothered by pain during the day but never awakened by pain during the night. She denies waking up feeling stiff in the morning. She denies waking up with sore or achy muscles. She denies waking up with pain in the neck, spine and other joints. She goes to bed between 9-10 p.m. on weekdays and at 10:00 p.m. on the weekends. It takes her 30 minutes to fall asleep. She wakes up 2-3 times throughout the night to urinate. She is able to fall back asleep within 5 minutes. She wakes up between 8-9 a.m. on both weekdays and weekends. She typically gets 8-10 hours of sleep per night. She will stay in bed for 30-60 minutes after waking up in the morning. She currently lives with her adult handicapped child. she does not consume any caffeinated beverages within 2 hours of bedtime. She does not engage in physical exercise before bedtime. She will watch television before falling asleep. She will take naps in the afternoon occasionally but they are not refreshing. She drinks 1 coffee per day. She denies tobacco, alcohol and recreational drug use. [facility] Past Medical History Medical History Atrial flutter Hypertension Major depressive disorder, recurrent, mild Osteoarthritis of knees, bilateral Pure hypercholesterolemia, unspecified Type 2 diabetes mellitus without complications Surgical History Surgical History History of lumbar surgery X2 History of total left knee replacement (02/14/23) Family History Family History Mother Carcinoma of colon Diabetes mellitus Hypertension Other Depression Social History Social History Social History: Surrogate medical decision maker: Eduardo Quintanilla, son. Code status: Full code. Smoking packs per day: 0.75 Smoking cigarettes per day: 15.0 Smoking status: Former smoker Tobacco type: cigarettes Second hand tobacco smoke exposure: No Smokin
[2023-04-10 11:46] VITALS: BMI 25.8
== END 2023-03-21 06:52 | disposition home or self-care (01) ==
LOC: ANHCSM 09:00
PROVIDERS: PCP Family Medicine Adolescent Medicine; Visit Provider Internal Medicine Cardiovascular Disease
DX: G47.10 Hypersomnia, unspecified (principal); I48.92 Unspecified atrial flutter
CPT/HCPCS: 95810

== ENCOUNTER 2023-06-18 10:25 | Outpatient (CLI) | payer MEDICARE, BC, SELFPAY ==
[2023-06-18 11:24] LABS: Basophils Percent Auto 0.7 % (0.2-1.2); Eosinophils Absolute Auto 0.1 K/mm3 (0-0.3); Eosinophils Percent Auto 2.5 % (0-4.4); Hematocrit 44.6 % (37.0-47.0); Hemoglobin 14.4 g/dL (12.0-15.0); Immature Granulocyte Absolute 0.01 K/mm3 (0.00-0.031); Immature Granulocyte Percent A 0.2 % (0-0.5); Lymphocytes Absolute Auto 1.38 K/mm3 (0.9-3.2); Lymphocytes Percent Auto 31.5 % (18.3-44.2); Mean Corpuscular HGB Conc 32.3 g/dl (32-36); Mean Corpuscular Hemoglobin 29.6 pg (26-34); Mean Corpuscular Volume 91.6 fl (80-100); Mean Platelet Volume 10.5 fl (7.4-10.4); Monocytes Absolute Auto 0.4 K/mm3 (0.1-0.6); Monocytes Percent Auto 8.7 % (2.6-8.5); Neutrophils Absolute Auto 2.5 K/mm3 (1.3-6.7); Neutrophils Percent Auto 56.4 % (45.5-73.1); Platelet Count Result 228 k/mm3 (150-375); Red Blood Count 4.87 M/mm3 (4.2-5.4); Red Cell Distribution Width 13.5 % (11.5-14.5); White Blood Count 4.4 K/mm3 (4.5-10.0)
[2023-06-18 11:35] LABS: Urine Cotinine NEGATIVE
[2023-06-18 11:36] LABS: Albumin Level 4.4 g/dL (3.5-5.1); Anion Gap 7 mmol/L (8-16); Blood Urea Nitrogen 16 mg/dL (7-17); Calcium 9.7 mg/dL (8.4-10.2); Carbon Dioxide 27 mmol/L (22-30); Chloride 102 mmol/L (98-107); Estimated Glomerular Filt Rate > 60; Glucose 127 mg/dL (65-110); Potassium 4.1 mmol/L (3.4-5.0); Sodium 136 mmol/L (137-145)
[2023-06-18 11:39] LABS: Hemoglobin A1C 6.4 % (<5.7)
== END 2023-06-18 10:26 | disposition home or self-care (01) ==
LOC: ANHSURGERY 10:30
PROVIDERS: PCP Family Medicine Adolescent Medicine; Visit Provider Orthopaedic Surgery
DX: M17.11 Unilateral primary osteoarthritis, right knee (principal); Z01.818 Encounter for other preprocedural examination
CPT/HCPCS: 80048; 80307; 82040; 83036; 85025; 86850; 86900; 86901; 87081

== ENCOUNTER 2023-06-25 03:24 | Day surgery (SDC) | payer MEDICARE, BC, SELFPAY ==
--- NOTE | 2023-06-12 10:11 | PC.NURSE ---
PRE-OP INSTRUCTIONS, PLEASE READ CAREFULLY Report to the Outpatient Waiting Room, entrance under the green pavilion located off [facility], at time _0600_ on date _06/25/23_. Planned Procedure Time: _0730_. PACK A SMALL OVERNIGHT BAG AND LEAVE IN THE CAR ALONG WITH YOUR WALKER Time changes happen often and if your time is changed the preop area will call you the afternoon before. - You and your visitor will be asked to self-screen and do not enter if you have any COVID symptoms. - A mask is optional within the hospital at this time. -VISITING HOURS 8AM-8PM Patients may have clear liquids (water, carbonated beverages, clear teas, apple juice) until 3 hours prior to surgery (0430 AM) with a maximum of 20 ounces. - No food from midnight until time of surgery Take the following medications with a SIP of water the morning of surgery: _ATENOLOL, PAROXETINE & TYLENOL IF NEEDED_ DO NOT STOP ANY OF YOUR OTHER PRESCRIPTION MEDICATIONS PRIOR TO SURGERY ?EXCEPT THE FOLLOWING Medications to discontinue - _ELIQUIS PER DR. REYNOLDS'S INSTRUCTIONS - Date to take last dose_CALL DR. REYNOLDS OF INSTRUCTIONS_ Please no make-up, nail comoran, hairspray, perfume, deodorant, or body powder the day of surgery. No jewelry (including any body piercings) or valuables the day of surgery, leave them at home. Please take a shower or bath the night before, or the morning of, surgery with an antibacterial soap. Wear comfortable, loose fitting clothing. - Jewelry must be removed prior to entering the operating room. Rings and piercings that are not removed may be cut off. - The hospital will not accept responsibility for valuables. - Please leave all valuables, including medications, at home the day of surgery. If you are going home after surgery, a licensed concrete mixing truck driver must drive you home. - NO public transportation without another adult if you receive anesthesia. - We recommend that an adult stay with you for 24 hours following discharge. - We also recommend that you do not drive, make important decision, drink alcoholic beverages, or take any drugs that were not prescribed by your health care provider for at least 24 hours after your discharge time. Follow any additional instructions given to you from your surgeon. If you or anyone in your household have experienced Covid symptoms in the past week, please notify your surgeon or the nurse liaison at the phone number below for possible testing. Telephone instructions given to _PATIENT_and asked if any additional questions and then verbalized understanding. Patient advised to call surgeon office or pre surgery nurse liaison [phone] if any additional questions.
[2023-06-12 10:16] VITALS: BMI 25.4
--- NOTE | 2023-06-22 07:52 | PM.IMHP ---
H&P: HPI History of Present Illness Date/Time: 06/22/23 07:52 Chief Complaint: DJD right knee Narrative: 77-year-old female presents today for right total knee arthroplasty. She underwent left total knee arthroplasty in February of this year. She did very well with her recovery and is happy with her results. She has severe medial compartment osteoarthritis with a severe flexion contracture in the right knee. She is having continued symptoms in the right knee. She feels that she has recovered well from her left total knee and is ready proceed with the right. Review of Systems Review of Systems: All systems reviewed & are unremarkable except as noted in HPI and below PMFSH Past Medical History Medical History Atrial flutter Hypertension Major depressive disorder, recurrent, mild Osteoarthritis of knees, bilateral Pure hypercholesterolemia, unspecified Type 2 diabetes mellitus without complications Surgical History Surgical History History of lumbar surgery X2 History of total left knee replacement (02/14/23) Family History Family History Mother Carcinoma of colon Diabetes mellitus Hypertension Other Depression Social History Social History Social History: Surrogate medical decision maker: Ashkan Quintanilla, benson. Code status: Full code. Smoking packs per day: 0.75 Smoking cigarettes per day: 15.0 Smoking status: Former smoker Tobacco type: cigarettes Second hand tobacco smoke exposure: No Smoking end date: 02/10/93 Additional smoking assessment comments: STATES 1/2PK/DAY/OFF-ON/5-6YRS/QUIT 80'S-PT DENIES ALL FORMS OF TOBACCO USE Alcohol intake: current Drinks per week: 1 Alcohol use details: WINE Substance use: never Substance use type: does not use Lack of Transportation: No Lack of Food: Never True Current Housing: I Have Housing Concerned About Future Housing: No Difficulty Paying Gas/Electric Bills: No Difficulty Paying for Meds: No Currently Unemployed: No Education: Bachelor's Degree Difficulty w/ Childcare or Family Care: No Living arrangements: with family Additional living arrangements comments: LIVES WITH SON ASHKAN Occupation/Education: retired 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 Spiritual care concerns: No Agree to blood products: Yes Meds Home Medications and Allergies Home Medications Medication Instructions Recorded Confirmed Type atorvastatin 40 mg tablet See Rx Instructions .Route 05/16/22 06/12/23 Rx .COMPLEX #90 tabs atenolol 50 mg tablet 50 mg PO DAILY #90 tabs 06/29/22 06/12/23 Rx metformin 500 mg tablet,extended 2,000 mg PO DAILY #360 tabs 08/03/22 06/12/23 Rx release 24 hr paroxetine HCl 20 mg tablet 40 mg PO BID 01/18/23 06/12/23 History acetaminophen 500 mg tablet 1,000 mg PO Q6H #90 tabs 02/15/23 06/12/23 Rx doxycycline hyclate 100 mg tablet 100 mg PO Q12HR #28 tabs 02/15/23 06/12/23 Rx cyanocobalamin (vitamin B-12) 1,000 mcg PO DAILY #90 caps 02/17/23 06/12/23 Rx 1,000 mcg capsule apixaban 5 mg tablet (Eliquis) 5 mg PO BID #60 tabs 06/07/23 06/12/23 Rx Allergies Allergy/AdvReac Type Severity Reaction Status Date / Time naproxen Allergy Mild Rash Verified 06/12/23 10:03 Exam Narrative: 77-year-old female she is 5 ft 5 157 lb her right knee range of motion is from 20-130 degrees. Obvious varus deformity. No effusion in the knee. Normal stability. She does not correct with valgus stress. 2+ dorsalis pedis and posterior artery pulse. Hip range of motion is full without discomfort. Negative Stinchfield maneuver. She has normal quad strength. There is no edema in lower extremities and she has normal sensation to the right lower extr
--- NOTE | 2023-06-22 14:36 | WPDANESEPPF ---
Anes - Initial Pre Proc Eval Procedure: Operation Date: 06/25/23 07:30 Proposed Procedures p Right Total Knee Arthroplasty - Marcus White MD Date/Time: 06/22/23 14:36 Surgeon: Marcus White MD Pre Op Diagnosis: oa rigth knee Patient Data Age: 77 Gender: F Height: 1.68 m Weight: 71.36 kg Allergies Allergy/AdvReac Type Severity Reaction Status Date / Time No Known Allergies Allergy Verified 06/25/23 06:28 Home Medications Medication Instructions Recorded Confirmed Type atorvastatin 40 mg tablet See Rx Instructions .Route 05/16/22 06/25/23 Rx .COMPLEX #90 tabs atenolol 50 mg tablet 50 mg PO DAILY #90 tabs 06/29/22 06/25/23 Rx metformin 500 mg tablet,extended 2,000 mg PO DAILY #360 tabs 08/03/22 06/25/23 Rx release 24 hr paroxetine HCl 20 mg tablet 40 mg PO BID 01/18/23 06/25/23 History acetaminophen 500 mg tablet 1,000 mg PO Q6H #90 tabs 02/15/23 06/25/23 Rx doxycycline hyclate 100 mg tablet 100 mg PO Q12HR #28 tabs 02/15/23 06/25/23 Rx cyanocobalamin (vitamin B-12) 1,000 mcg PO DAILY #90 caps 02/17/23 06/25/23 Rx 1,000 mcg capsule apixaban 5 mg tablet (Eliquis) 5 mg PO BID #60 tabs 06/07/23 06/25/23 Rx Patient hx anesthesia problems: none Family hx anesthesia problems: none Results Review: All pre-operative results and documents have been reviewed as part of the pre-operative evaluation. [facility] Past Medical History Medical History Atrial flutter Hypertension Major depressive disorder, recurrent, mild Osteoarthritis of knees, bilateral Pure hypercholesterolemia, unspecified Type 2 diabetes mellitus without complications Surgical History Surgical History History of lumbar surgery X2 History of total left knee replacement (02/14/23) Family History Family History Mother Carcinoma of colon Diabetes mellitus Hypertension Other Depression Social History Social History Social History: Surrogate medical decision maker: Ashkan Quintanilla, son. Code status: Full code. Smoking packs per day: 0.75 Smoking cigarettes per day: 15.0 Smoking status: Former smoker Tobacco type: cigarettes Second hand tobacco smoke exposure: No Smoking end date: 02/10/93 Additional smoking assessment comments: STATES 1/2PK/DAY/OFF-ON/5-6YRS/QUIT 80'S-PT DENIES ALL FORMS OF TOBACCO USE Alcohol intake: current Drinks per week: 1 Alcohol use details: WINE Substance use: never Substance use type: does not use Lack of Transportation: No Lack of Food: Never True Current Housing: I Have Housing Concerned About Future Housing: No Difficulty Paying Gas/Electric Bills: No Difficulty Paying for Meds: No Currently Unemployed: No Education: Bachelor's Degree Difficulty w/ Childcare or Family Care: No Living arrangements: with family Additional living arrangements comments: LIVES WITH SON ASHKAN Occupation/Education: retired 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 Spiritual care concerns: No Agree to blood products: Yes Anes - Eval Final PreProcedure Day of Procedure 06/22/23 14:36 Patient weight: normal Heart: regular rate and rhythm Lungs: clear to auscultation Airway: Mallampati scale class II Neurological: alert and oriented Last oral intake: >/= 8 hours ASA classification: III Emergent: no Anesthetic plan: proceed Anesthesia type and monitoring: general ETT and standard monitoring Results Review: All pre-operative results and documents have been reviewed as part of the pre-operative evaluation. Informed Consent: The patient's anesthetic plan and its attendant risks and benefits were discussed with the patient/family/POA. Questions were solicited and answers provided to the sat
[2023-06-25] VITALS (12 sets, daily range): BP systolic 120–154; BP diastolic 60–111; PULSE 67–86; RESP 12–18; TEMP 36.1–37.8; O2SAT 97–100
--- NOTE | ~2023-06-25 | XR_ITS ---
EXAMINATION: [id number] DATE: 06/25/2023 12:22 INDICATION: Postoperative evaluation following right total knee arthroplasty. TECHNIQUE: Anteroposterior and lateral views of the right knee were obtained. COMPARISON: 02/16/2023 FINDINGS: Right total knee arthroplasty with patellar resurfacing appears well seated and in near anatomic alig nment. No fractures identified. Expected postoperative subcutaneous and intra-articular gas. IMPRESSION: 1. Right total knee arthroplasty, negative for postoperative purposes. Reviewed, dictated and finalized at location A.
[2023-06-25] MEDS: LACTATED RINGERS 1,000 ML 30 ML IV CONT ×2 (06:38→12:28)
[2023-06-25] MEDS: VANCOMYCIN 1,000 MG/NS 250 ML BAG 250 MG IVPB (06:40)
[2023-06-25] MEDS: ACETAMINOPHEN 500 MG TABLET 1000 MG PO ×2 (06:42→18:14)
[2023-06-25] MEDS: TRANEXAMIC ACID 1,000MG/ISO100 1,000 MG/100 ML BAG 200 MG IVPB (06:42)
[2023-06-25 06:48] LABS: Glucose Point of Care 152 mg/dl (65-105)
--- NOTE | 2023-06-25 07:19 | WPDHPUPDATE1 ---
History and Physical Update Update Date/Time: 06/25/23 07:19 History and Physical has been reviewed, including an updated exam of the patient. There are NO changes in the patient's condition. Risks, benefits, and alternatives have been discussed and questions answered. Patient agrees to proceed with procedure.
--- NOTE | 2023-06-25 07:21 | WPDHPUPDATE1 ---
History and Physical Update Update Date/Time: 06/25/23 07:21 History and Physical has been reviewed, including an updated exam of the patient. There are NO changes in the patient's condition. Risks, benefits, and alternatives have been discussed and questions answered. Patient agrees to proceed with procedure.
[2023-06-25] MEDS: ceFAZolin 2 GM/D5W 50 ML 2 GM/50 ML BAG IVPB (07:30)
[2023-06-25] MEDS: ceFAZolin SODIUM 1 GM VIAL 3 GM (08:19)
[2023-06-25] MEDS: ceFAZolin SODIUM 1 GM VIAL 2 GM IV PUSH (11:19)
[2023-06-25] MEDS: TRANEXAMIC ACID 1,000 MG/10 ML AMPUL 1000 MG IV PUSH (11:21)
[2023-06-25] MEDS: KETOROLAC 30 MG/ML VIAL (*BKC) 7.5 MG IV PUSH (11:26)
[2023-06-25] MEDS: GENTAMICIN BONE CEMENT REFOBACIN 1 EACH TOPICAL (11:30)
--- NOTE | 2023-06-25 12:13 | W.PM.PROC2 ---
Procedure Note - Detailed Date of Procedure 06/25/23 Pre-op Diagnosis oa right knee, prominent varus deformity and flexion contracture Post-op Diagnosis Same Procedure Performed Right total knee arthroplasty Surgeon Marcus White MD Rotary Driller Helper bruno Anesthesia General Description of Procedure Patient was brought to the operating room and general anesthesia was administered. She received 2 g of Ancef weight based vancomycin 1 g of tranexamic acid preoperatively. Under anesthesia she continued to have a fixed significant varus contracture and flexion contracture. The right leg was prepped and draped in the usual fashion with DuraPrep and Ioban. Limb was exsanguinated tourniquet elevated to 275 mmHg. A 7 in longitudinal midline incision was used. A vastus medialis splitting approach utilized splitting the vastus medialis at the level of superior pole of patella. Infrapatellar and suprapatellar fat pads were excised a quadriceps synovectomy carried out. The patella measured 24 mm in thickness and was cut to 16 mm. Protector cap was applied. A guide román was inserted down the femoral canal after aspiration of canal contents using the 5 degree valgus cutting bushing 9 mm of bone removed the distal femur. This removed equal amounts medially and laterally. Next the tibial plateau was cut. Our cut removed 11 mm bone off the lateral tibial plateau and left defect posteromedially due to wear. I did not wish to cut more tibial bone as I did not wish to remove the lateral capsular insertion on the lateral margin the tibia as I felt she was already stretched out laterally as seen by the distraction lateral compartment on the standing x-ray. Meniscal remnants were excised. Medial tibial osteophyte was carefully removed after peeling enough medial capsule to do this. PCL was released from the femur. With this carried out, we had flexion gap 9 mm medially and 13 mm laterally. The sizing guide was applied to the distal femur set 4? of external rotation which matched Whitesides line. The size 65 cutting block was applied AP and chamfer cuts were made. The anterior cut was flush with the anterior cortex without notching. Posterior capsule release was performed. A provisional removal of very large posterior femoral osteophytes was performed. On trialing, the knee was still far too tight in extension with the 10 insert with spreading apart the lateral compartment due to the tension medially. The 10 insert was appropriate in flexion. Additional 2 mm of bone was removed from the distal femur and chamfer cuts revisited posterior femoral osteophyte formally removed this time. Posterior capsule release was completed from the femur leaving the origins of the medial and lateral heads of the gastrocnemius attached. The tibia was sized to a 67 and this was going to overhang the posteromedial defect a little bit and the I felt that use of an extended stem was appropriate and we punched for the 80 mm x 10 mm finned stem [employer]. This allowed us to remove additional posteromedial tibial bone. We carefully exposed the proximal 1 cm of the posteromedial tibial plateau peeling off the ligamentous attachments to accomplish this and then using the 2 mm drill bit made multiple perforations in the posteromedial sclerotic bone the tibial plateau and connected these with a quarter-inch osteotome to remove additional posteromedial tibial bone to reduce tension on the medial capsule. We still lacked 5? of extension with the trialing using 10 trial poly. An additional 1 mm bone was removed the distal femur chamfer cuts revisited and we trialed again and we were still not in full extension due to tightness medially and on the lateral side at 5? of flexion it opened up at least 6 mm to varus stress. I felt that I had released all of the posteromedial capsular insertion and did not were wish to compromise the integrity of the medial collateral ligament superficial band as this was th
--- NOTE | 2023-06-25 12:25 | PM.OP ---
Procedure Note - Brief Procedure Note - Brief Date of procedure: 06/25/23 oa rigth knee Procedure performed: Right total knee arthroplasty Surgeon: ZOYA Lyman Findings: 77-year-old female who underwent right total knee arthroplasty on 06/25. I was involved procedure including positioning the patient on the OR table and 1st assisting to the time of surgery and assisted in getting patient to recovery. Total time spent was 4 hours
[2023-06-25 12:52] LABS: Glucose Point of Care 206 mg/dl (65-105)
--- NOTE | 2023-06-25 13:20 | ADMGEN ---
This patient, Marilu Quintanilla, was admitted to [facility] Surg Room 331-01. Patient/family oriented to hospital policies and general routines including ID bracelet, bed and alarms, visiting hours, pain management, procedures, bathroom and other care routines, personal items, smoking policy, room service/diet, and visiting hours. Information on how to activate the Rapid Response Team has been discussed. Patient/Family are encouraged to report perceived risks to care and to ask questions if they do not understand what they are told or what they should do.
[2023-06-25] MEDS: oxyCODONE HCL (*CRX) 5 MG TAB IR PO ×3 (14:06→20:49)
[2023-06-25] MEDS: SODIUM CHLORIDE 0.9% IV 1,000 ML 125 ML IV CONT (14:06)
[2023-06-25] MEDS: SENNA/DOCUSATE SODIUM TABLET 2 TAB PO (16:48)
[2023-06-25] MEDS: ceFAZolin 1 GM/NS 50 ML 1 GM/50 ML BAG IVPB ×2 (16:48→22:21)
[2023-06-25] MEDS: PARoxetine 20 MG TABLET 40 MG PO (16:49)
[2023-06-25] MEDS: metFORMIN HCL XR 500 MG TAB.SR.24H 2000 MG PO (16:49)
[2023-06-25] MEDS: VANCOMYCIN 1,000 MG/NS 250 ML 1,000 MG/250 ML BAG 250 MG IVPB (18:14)
[2023-06-25] MEDS: KETOROLAC 15 MG/ML VIAL (*BKC) 7.5 MG IV PUSH (18:16)
--- NOTE | 2023-06-25 19:04 | WPDCN ---
Assessment and Plan Assessment and plan (1) Right knee DJD: Code(s): M17.11 - Unilateral primary osteoarthritis, right knee Status: Acute Assessment and Plan: Postoperative day 0 status post right total knee arthroplasty. Wound care, pain control, DVT prophylaxis deferred to Dr. White. Agree with PT/OT. Check labs in a.m.. (2) Atrial flutter: Qualifiers: Atrial flutter type: unspecified Qualified Code(s): I48.92 - Unspecified atrial flutter Code(s): I48.92 - Unspecified atrial flutter Status: Acute Assessment and Plan: She currently sounds to be in a sinus rhythm. Continue atenolol. Resume apixaban when okay with Dr. White. (3) Hypertension: Qualifiers: Hypertension type: primary hypertension Qualified Code(s): I10 - Essential (primary) hypertension Code(s): I10 - Essential (primary) hypertension Status: Chronic Assessment and Plan: Blood pressures were reviewed and they have been stable postoperatively. Continue antihypertensives and monitor. (4) Type 2 diabetes mellitus: Code(s): E11.9 - Type 2 diabetes mellitus without complications Status: Acute Assessment and Plan: Resume metformin on discharge. Initiate sliding scale insulin, Accu-Cheks, and hypoglycemic protocol. Recent A1c was 6.6%. Plan Thank you for allowing us to participate in this patient's care. Please do not hesitate to contact us with any questions. HPI Data of Consult Date/Time: 06/25/23 19:30 Requesting Physician: Marcus White MD Consult Narrative Reason for consult: Postoperative medical management. Narrative: This is a 77-year-old female with type 2 diabetes mellitus, hypertension, hypercholesterolemia, paroxysmal atrial flutter on chronic anticoagulation, type 2 diabetes mellitus, and osteoarthritis whom the hospitalist service has been consulted for help managing her medical conditions postoperatively. She has had longstanding pain in her right knee non amenable to conservative outpatient treatment and she elected for replacement today. She had her left knee replaced in February has had good results with that peer her surgery was performed under general anesthesia with no immediate complications documented an estimated blood loss of 300 mL. Postoperatively she is doing quite well and she has minimal pain. She has been up to the chair and ambulating with a walker without much issue. She has some aching discomfort when moving the knee but nothing significant. She also denies postoperative fever, chills, chest pain, shortness a breath, nausea, and vomiting. No paresthesias, skin color, or temperature changes distal to the surgical site. She is on atenolol 50 mg daily for high blood pressure and 40 mg of atorvastatin for high cholesterol. To her knowledge these are both well controlled on medications. She also takes metformin 500 mg daily and her most recent hemoglobin A1c was 6.4%. Review of Systems Review of Systems: Twelve systems were reviewed and are negative except for as per HPI. [facility] Past Medical History Medical History (Updated 06/25/23 @ 19:06 by Shaye Finch PA-C) Atrial flutter Hypertension Major depressive disorder, recurrent, mild Osteoarthritis of knees, bilateral Pulmonary hypertension Pure hypercholesterolemia, unspecified Type 2 diabetes mellitus without complications Vitamin B12 deficiency Surgical History Surgical History (Updated 06/25/23 @ 19:06 by Shaye Finch PA-C) History of lumbar surgery X2 History of total left knee replacement (02/14/23) History of total right knee replacement (06/25/23) Family History Family History Mother Carcinoma of colon Diabetes mellitus Hypertension Other Depression Social History Social History (Updated 06/25/23 @ 19:07 by Shaye Finch PA-C) Social History: S
[2023-06-25] MEDS: FAMOTIDINE 20 MG TABLET PO (20:49)
[2023-06-25 20:52] LABS: Glucose Point of Care 145 mg/dl (65-105)
[2023-06-26] VITALS: BP 115/70; PULSE 78; RESP 14; TEMP 36.1; O2SAT 100
[2023-06-26] MEDS: oxyCODONE HCL (*CRX) 5 MG TAB IR PO ×3 (01:18→08:22)
[2023-06-26 04:00] VITALS: BP 134/55; PULSE 76; RESP 14; TEMP 36.3; O2SAT 96
[2023-06-26] MEDS: VANCOMYCIN 1,000 MG/NS 250 ML 1,000 MG/250 ML BAG 250 MG IVPB (05:00)
--- NOTE | 2023-06-26 06:21 | PM.PNORT ---
Subjective Subjective Date/Time Seen: 06/26/23 06:21 Interval history: Postop day 1 patient is alert. She has been afebrile and vital signs are stable. Morning labs were just drawn on I was in the room talking with her. Her pain is very well controlled. She was up walking yesterday with physical therapy and is comfortably. Dressing is intact and dry. Patient is able do a straight leg raise in the bed without any discomfort. Plan will be to have the patient work with therapy this morning if she remains comfortable we will plan to discharge her home. Objective Data Vital Signs Vital Signs: Vital Signs - 24 hr 06/25/23 07:02 06/25/23 12:17 06/25/23 12:35 Temperature 37.8 C H 37.2 C Pulse Rate 67 82 78 Respiratory Rate 17 14 Blood Pressure 154/72 H 137/87 134/77 Pulse Oximetry 97 97 Oxygen Delivery Simple Face Mask Room Air Oxygen Flow Rate 6 06/25/23 12:50 06/25/23 13:05 06/25/23 13:55 Temperature 37.2 C 36.3 C L Pulse Rate 80 75 80 Respiratory Rate 12 14 16 Blood Pressure 127/75 120/75 131/60 Pulse Oximetry 97 97 98 Oxygen Delivery Room Air Room Air Oxygen Flow Rate 06/25/23 13:40 06/25/23 14:31 06/25/23 14:25 Temperature 36.1 C L 36.1 C L Pulse Rate 76 78 Respiratory Rate 16 16 Blood Pressure 131/60 125/63 Pulse Oximetry 98 98 Oxygen Delivery Room Air Oxygen Flow Rate 06/25/23 16:00 06/25/23 19:01 06/25/23 20:00 Temperature 36.1 C L 36.7 C Pulse Rate 75 76 Respiratory Rate 16 15 Blood Pressure 137/75 144/74 H Pulse Oximetry 100 100 Oxygen Delivery Room Air Oxygen Flow Rate 06/25/23 22:02 06/26/23 00:00 Temperature 36.3 C L 36.1 C L Pulse Rate 86 78 Respiratory Rate 14 14 Blood Pressure 124/78 115/70 Pulse Oximetry 99 100 Oxygen Delivery Oxygen Flow Rate Intake/Output Intake/Output: Intake & Output 06/23/23 06/24/23 06/25/23 06/26/23 23:59 23:59 23:59 23:59 Intake Total 420 100 Balance 420 100 Meds/Results Medications: Active Medications Generic Name Dose Route Start Last Admin Trade Name Freq PRN Reason Stop Dose Admin Acetaminophen 1,000 mg 06/25/23 18:00 06/25/23 23:08 Acetaminophen 500 Mg Tablet PO Not Given Q6H DIMAS Apixaban 2.5 mg 06/26/23 09:00 Apixaban 2.5 Mg Tablet PO 07/07/23 21:01 Q12HR DIMAS Atenolol 50 mg 06/26/23 09:00 Atenolol 50 Mg Tablet PO DAILY [facility] Atorvastatin Calcium 40 mg 06/26/23 09:00 Atorvastatin 40 Mg Tablet BY MOUTH DAILY DIMAS Celecoxib 100 mg 06/26/23 08:00 Celecoxib 100 Mg Capsule PO DAILY@0800 DIMAS Cephalexin HCl 500 mg 06/26/23 12:00 Cephalexin 500 Mg Capsule PO Q6HR DIMAS Dextrose 12.5 gm 06/25/23 19:08 Dextrose 50% 25 Gm/50 Ml Syringe IV PUSH PRN PRN Hypoglycemia Protocol Diphenhydramine HCl 25 mg 06/25/23 13:16 Diphenhydramine Hcl Inj 50 Mg/Ml Vial IV PUSH Q6H PRN Itching Famotidine 20 mg 06/25/23 21:00 06/25/23 20:49 Famotidine 20 Mg Tablet PO 20 mg Q12HR DIMAS Administration Glucagon 1 mg 06/25/23 19:08 Glucagon For Inj 1 Mg Vial IM PRN PRN Hypoglycemia Protocol Glucose 15 gm 06/25/23 19:08 Glucose Oral Gel 15 Gm Of Glucse In 37.5 Gm Tube PO PRN PRN Hypoglycemia Protocol Vancomycin HCl 1,000 mg in 250 mls @ 250 mls/hr 06/25/23 18:00 06/26/23 05:00 Vancomycin 1,000 Mg/Ns 250 Ml IVPB 06/26/23 06:59 250 mls/hr Q12H DIMAS Administration Cefazolin Sodium 1 gm in 50 mls @ 100 mls/hr 06/25/23 15:00 06/25/23 22:21 Ancef 1 Gm/Ns 50 Ml IVPB 06/26/23 07:29 100 mls/hr Q8H DIMAS Administration Dextrose 1,000 mls @ 100 mls/hr 06/25/23 19:08 Dextrose 5% 1,000 Ml IVPB PRN PRN Hypoglycemia Protocol Insulin Aspart 1 - 2 units 06/25/23 21:00 06/25/23 20:48 Insulin Aspart (*Bkc) 100 Units/Ml SUB-Q Not Given HS DIMAS Protocol Insulin Aspart 2 - 5 units 06/26/23 08:00 Insulin Aspart (*Bkc)
--- NOTE | 2023-06-26 06:26 | PM.DS ---
DS: Admitting Diagnosis Discharge Date 06/26 Admitting Diagnosis Right knee DJD DS: Discharge Diagnosis Discharge Diagnosis (1) Right knee DJD: Code(s): M17.11 - Unilateral primary osteoarthritis, right knee Status: Acute DS: Summary Hospital Course Hospital Course: 77-year-old female underwent right total knee arthroplasty on 06/25. Underwent the procedure without complications. Postoperatively she has been afebrile vital signs are stable. At the time of dictation morning labs on postop day 1 were not completed yet. Overall pain is very well controlled with scheduled Tylenol as well as oxycodone 5 mg. She is on Celebrex 100 mg a day. She is on Eliquis for DVT prophylaxis. She will go home with a 10 day course of Keflex due to her history of diabetes. On morning of postop day 1 patient was alert and comfortable. Dressing was dry and intact. Neurovascularly she is intact. She was up walking the day of surgery with therapy and is comfortable. She will be discharged home on 06/26. She was advised any questions or concerns she is to call the office. She was advised to keep leg elevated to prevent swelling in the knee but do her exercises on hourly basis. She had her left knee replaced approximately 4 months ago and did very well with her recovery and she was encouraged to continue to work hard on the recovery for her right knee. She also go home Senokot MiraLax. Time Spent with Patient Time attestation: Total time spent providing and/or coordinating discharge services: DS: Data Data Completed and Pending Labs on day of discharge: Labs from last 24 hours 06/25/23 06/25/23 06/25/23 20:45 12:47 06:41 POC Capillary Glucose 145 H 206 H 152 H Discharge Plan Discharge Patient Disposition: Home, Self-Care Discharge Instructions: MARCUS WHITE M.D [facility], [place] [address] [address] POST-OPERATIVE DISCHARGE INSTRUCTIONS TOTAL KNEE ARTHROPLASTY 1. When resting, lie on back with leg elevated above heart to minimize swelling. Significant swelling could indicate a blood clot and if this occurs call the office (or go to the ER) to have a venous ultrasound. 2. Do exercise 5 times a day. 3. Do not sit with leg down except for meals. 4. Wound Care: Nursing will give additional dressings at discharge. Patient to change dressing at home 1 week from surgery, then maintain until seen in office. 5. May shower with dressing in place. 6. Follow weight bearing status instructions. IMPORTANT: Remember not to sit in the chair for more than 30 minutes at a time. As a rule, during the first 14 days after surgery, only sit in the chair to work on the chair knee bending stretch exercise, for meals or for use of the restroom. Sitting in the chair promotes significant swelling in the knee and leg which will make the knee stiff and more painful and which simulates having a blood clot in the veins of the leg. If this type of significant diffuse swelling occurs, an ultrasound at the hospital will be necessary to rule out a blood clot. Be up walking around with the walker for a few minutes every hour while awake and then rest laying on your back on the couch or in bed with your leg elevated on cushions or pillows. Do not rest in the chair. Stand Alone Forms: General Discharge Instructions Follow-up/Referrals: Marcus White MD [Physician] - Keep Reg. Scheduled Appt. Discharge Medications: New acetaminophen 500 mg Tablet 1,000 mg PO Q6H Qty: 90 0RF Eliquis 2.5 mg Tablet 2.5 mg PO Q12HR Qty: 28 0RF polyethylene glycol 3350 [Miralax] 17 gram Powder In Packet 17 g PO QAM Qty: 30 0RF sennosides-docusate sodium [Senokot-S] 8.6-50 mg Tablet 2 tab PO BID Qty: 60 0RF cephalexin 500 mg Capsule 500 mg PO Q6HR Qty: 40 0RF celecoxib [Celebrex] 100 mg Capsule 100 mg PO DAILY@0800 Qty: 60 0RF oxycodone
[2023-06-26 06:31] LABS: Basophils Percent Auto 0.6 % (0.2-1.2); Eosinophils Absolute Auto 0.1 K/mm3 (0-0.3); Eosinophils Percent Auto 1.3 % (0-4.4); Hematocrit 31.4 % (37.0-47.0); Immature Granulocyte Absolute 0.02 K/mm3 (0.00-0.031); Immature Granulocyte Percent A 0.3 % (0-0.5); Lymphocytes Absolute Auto 1.07 K/mm3 (0.9-3.2); Mean Corpuscular HGB Conc 31.8 g/dl (32-36); Mean Corpuscular Hemoglobin 29.8 pg (26-34); Mean Corpuscular Volume 93.5 fl (80-100); Monocytes Absolute Auto 0.8 K/mm3 (0.1-0.6); Monocytes Percent Auto 10.7 % (2.6-8.5); Neutrophils Absolute Auto 5.2 K/mm3 (1.3-6.7); Neutrophils Percent Auto 72.1 % (45.5-73.1); Platelet Count Result 158 k/mm3 (150-375); Red Blood Count 3.36 M/mm3 (4.2-5.4); White Blood Count 7.1 K/mm3 (4.5-10.0)
[2023-06-26] MEDS: ACETAMINOPHEN 500 MG TABLET 1000 MG PO (06:32)
[2023-06-26] MEDS: ceFAZolin 1 GM/NS 50 ML 1 GM/50 ML BAG IVPB (06:33)
[2023-06-26 06:41] LABS: Alanine Aminotransferase 17 U/L (6-35); Albumin Level 3.3 g/dL (3.5-5.1); Alkaline Phosphatase 34 U/L (38-126); Anion Gap 9 mmol/L (8-16); Aspartate Amino Transferase 29 U/L (14-36); Bilirubin,Total 0.5 mg/dL (0.2-1.3); Blood Urea Nitrogen 16 mg/dL (7-17); Calcium 8.6 mg/dL (8.4-10.2); Carbon Dioxide 23 mmol/L (22-30); Chloride 103 mmol/L (98-107); Estimated CRCL calculation 39 ml/min; Estimated Glomerular Filt Rate 54; Glucose 126 mg/dL (65-110); Magnesium 1.3 mg/dL (1.6-2.3); Sodium 135 mmol/L (137-145)
[2023-06-26 08:19] LABS: Glucose Point of Care 114 mg/dl (65-105)
[2023-06-26] MEDS: CELECOXIB 100 MG CAPSULE PO (08:20)
[2023-06-26] MEDS: APIXABAN 2.5 MG TABLET PO (08:20)
[2023-06-26 08:21] VITALS: PULSE 73
[2023-06-26] MEDS: atenoloL 50 MG TABLET PO (08:21)
[2023-06-26] MEDS: ATORVASTATIN 40 MG TABLET BY MOUTH (08:21)
[2023-06-26] MEDS: PARoxetine 20 MG TABLET 40 MG PO (08:22)
[2023-06-26] MEDS: SENNA/DOCUSATE SODIUM TABLET 2 TAB PO (08:22)
[2023-06-26] MEDS: FAMOTIDINE 20 MG TABLET PO (08:22)
[2023-06-26] MEDS: polyethylene glycoL 3350 17 GM POWD.PACK PO (08:22)
[2023-06-26 10:40] VITALS: BP 135/77; PULSE 62; RESP 16; TEMP 36.6; O2SAT 100
== END 2023-06-26 11:55 | disposition home or self-care (01) ==
LOC: ANHSURGERY 06:08 → ANH3MEDSUR 13:21
PROVIDERS: Physician Assistant Surgical; PCP Family Medicine Adolescent Medicine; Visit Provider Orthopaedic Surgery
PROC: (CPT 27447; principal; 2023-06-25 07:30)
DX: M17.11 Unilateral primary osteoarthritis, right knee (principal); I48.92 Unspecified atrial flutter; E11.9 Type 2 diabetes mellitus without complications; E78.00 Pure hypercholesterolemia, unspecified; F33.0 Major depressive disorder, recurrent, mild; Z79.01 Long term (current) use of anticoagulants; Z79.84 Long term (current) use of oral hypoglycemic drugs; Z87.891 Personal history of nicotine dependence
CPT/HCPCS: 27447; 36415; 73560; 80048; 80076; 80307; 82040; 82948; 83036; 83735; 85025; 86850; 86900; 86901; 87081; 97110; 97116; 97161; 97165; 97530; 97535; A9270; C1713; C1776; J0171; J0690; J1100; J1170; J1885; J2270; J2371; J2405; J2704; J2710; J2795; J3010; J3370; J7030; J7120

== ENCOUNTER 2024-04-18 00:22 | Emergency (ER) | payer MEDICARE, BC, SELFPAY ==
--- NOTE | ~2024-04-18 | XR_ITS ---
Clinical Indication: Weakness PA and lateral views of the chest: Comparison: 10/06/2014 Findings: The lungs are clear, without evidence of focal consolidation or pleural effusion. Possible COPD. Cardiomediastinal silhouette is within normal limits. Bones and soft tissues are unremarkable. Impression: Clear lungs. Possible COPD. Reviewed, dictated and finalized at location . Impression: Clear lungs. Possible COPD.
[2024-04-18 00:21] VITALS: BP 139/63; PULSE 87; RESP 18; TEMP 37.2; O2SAT 98
[2024-04-18 00:27] VITALS: PULSE 97
[2024-04-18 00:29] VITALS: BP 139/63; PULSE 84; RESP 18; TEMP 37.2; O2SAT 99
--- NOTE | 2024-04-18 00:30 | ECG_ITS ---
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 Measurements Intervals [place] Rate: 91 P: 0 [place]: 0 QRS: 38 QRSD: 97 T: 56 QT: 394 QTc: 487 Interpretive Statements ATRIAL FLUTTER/TACHYCARDIA WITH ABERRANT CONDUCTION OR VENTRICULAR PREMATURE COMPLEXES INCOMPLETE RIGHT BUNDLE BRANCH BLOCK [90+ ms QRS DURATION, TERMINAL R IN V1/V2, 40+ ms S IN I/aVL/V4/V5/V6] NONSPECIFIC ST ABNORMALITY ABNORMAL ECG No previous ECG available for comparison Electronically Signed On 04-18-2024 09:09:50 CDT by Todd Segundo M.D.
[2024-04-18 00:58] LABS: Alanine Aminotransferase 12 U/L (6-35); Albumin Level 4.2 g/dL (3.5-5.1); Alkaline Phosphatase 67 U/L (38-126); Anion Gap 11 mmol/L (4-12); Aspartate Amino Transferase 20 U/L (14-36); Basophils Percent Auto 0.4 % (0.2-1.2); Blood Urea Nitrogen 19 mg/dL (7-17); Calcium 9.6 mg/dL (8.4-10.2); Carbon Dioxide 19 mmol/L (22-30); Chloride 104 mmol/L (98-107); Estimated CRCL calculation 38 ml/min; Estimated Glomerular Filt Rate 54; Glucose 212 mg/dL (65-110); Hematocrit 55.7 % (37.0-47.0); Hemoglobin 18.4 g/dL (12.0-15.0); Immature Granulocyte Absolute 0.04 K/mm3 (0.00-0.031); Immature Granulocyte Percent A 0.6 % (0-0.5); Lymphocytes Absolute Auto 0.49 K/mm3 (0.9-3.2); Lymphocytes Percent Auto 6.8 % (18.3-44.2); Mean Corpuscular Hemoglobin 28.5 pg (26-34); Mean Corpuscular Volume 86.2 fl (80-100); Mean Platelet Volume 11.2 fl (7.4-10.4); Monocytes Absolute Auto 0.7 K/mm3 (0.1-0.6); Monocytes Percent Auto 9.8 % (2.6-8.5); Neutrophils Percent Auto 82.4 % (45.5-73.1); Platelet Count Result 118 k/mm3 (150-375); Potassium 3.7 mmol/L (3.4-5.0); Red Blood Count 6.46 M/mm3 (4.2-5.4); Red Cell Distribution Width 16.2 % (11.5-14.5); Sodium 134 mmol/L (137-145); White Blood Count 7.2 K/mm3 (4.5-10.0)
[2024-04-18 02:08] LABS: Appearance Urine Turbid (Clear); Bacteria Urine 4+ /hpf; Bilirubin Urine Negative (Negative); Blood Urine 2+ (Negative); Budding Yeast Urine Present /hpf; Color Urine Yellow (Yellow); Glucose Urine UA Negative (Negative); Ketones Urine Trace mg/dL (Negative); Leukocyte Esterase Ur 3+ LEU/UL (Negative); Need Manual Microscopic Reviewed; Nitrate Urine Positive (Negative); Protein Urine 3+ mg/dL (Negative); Specific Grav Ur 1.018 (1.001-1.035); Squamous Epithelial Cell Urine Occasional /hpf (Few); WBC Urine >100 /hpf (0-3)
[2024-04-18 02:08] LABS: Influenza A QL RT-PCR Negative (Negative); Influenza B QL RT-PCR Negative (Negative); RSV RNA, RT-PCR Negative (Negative); SARS-CoV-2 RNA PCR Negative (Negative)
[2024-04-18 02:09] LABS: Add Urine Microscopic? YES
--- NOTE | 2024-04-18 02:18 | ED.GENADULT ---
HPI - General Adult General Chief complaint: Weakness Stated complaint: FEVER, WEAK, IN A-FLUTTER W/ PVC's Time Seen by Provider: 04/18/24 01:31 History of Present Illness HPI narrative: Patient is a 78-year-old female who presents the emergency department this evening complaining of generalized weakness, fatigue, not feeling like herself and admits that she did have an episode of urinary incontinence prior to coming to the emergency department. Patient's family members did state that she did seem a little bit more altered to them today but other than that denies any additional symptoms or concerns. Patient is alert and oriented to person, place, time and situation and is answering all my questions appropriately. She is currently denying any pain including chest pain and abdominal pain and denies any shortness of breath, also denies any fevers or chills at home. Denies any recent falls or trauma. No additional symptoms or concerns at this time. Related Data Allergies Allergy/AdvReac Type Severity Reaction Status Date / Time No Known Allergies Allergy Verified 04/18/24 00:29 Review of Systems Review of Systems: All systems are reviewed and are negative unless stated otherwise in the HPI. 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 Code status: Full code. Smoking packs per day: 0.05 Smoking cigarettes per day: 1.0 Years smoked: 7 Smoking pack-years: 0.35 Smoking status: Former smoker Tobacco type: cigarettes Second hand tobacco smoke exposure: Yes Smoking end date: 02/10/93 Alcohol intake: current Drinks per week: 1 Alcohol use details: Wine. Substance use: never Substance use type: does not use Lack of Transportation: No Lack of Food: Never True Current Housing: I Have Housing Concerned About Future Housing: No Difficulty Paying Gas/Electric Bills: No Difficulty Paying for Meds: No Currently Unemployed: No Education: Decline to Answer Difficulty w/ Childcare or Family Care: No Living arrangements: with family Additional living arrangements comments: Lives with son Eduardo. 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 Spiritual care concerns: No Agree to blood products: Yes Exam Narrative: General: Alert, awake, afebrile, in no acute distress. HEENT: PERRL, no rhinorrhea, no post nasal drip, oropharynx clear. Cardiovascular: Regular rate and rhythm, no murmurs, rubs or gallops, no peripheral edema. Respiratory: Clear to auscultation bilaterally, no tachypnea, no wheezing, no rhonchi, no rubs, no respiratory distress. Abdomen: Soft, nontender, nondistended, no rebound, no guarding, no peritoneal signs. Musculoskeletal: No joint swelling or deformity, normal muscle tone. Skin: No rashes or petechia, no signs of infection. Neurological: Alert and oriented to person, place, and time. Follows all commands. No focal deficits, speech is clear and fluent. Course Vital Signs Vital signs: Vital Signs Temperature 99.0 F 04/18/24 00:21 Pulse Rate 87 06/0
[2024-04-18] MEDS: cefTRIAXone 2 GM/NS 100 ML 2 GM/100 ML BAG IVPB (02:24)
--- NOTE | 2024-04-18 02:58 | ECG_ITS ---
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 Measurements Intervals [place] Rate: 86 P: 0 [place]: 0 QRS: 54 QRSD: 87 T: 63 QT: 387 QTc: 465 Interpretive Statements ATRIAL FLUTTER/TACHYCARDIA WITH ABERRANT CONDUCTION OR VENTRICULAR PREMATURE COMPLEXES POSSIBLE RIGHT VENTRICULAR CONDUCTION DELAY [RSR (QR) IN V1/V2] MINIMAL ST DEPRESSION [0.025+ mV ST DEPRESSION] ABNORMAL RHYTHM ECG Compared to ECG 04/18/2024 00:29:56 VENTRICULAR RESPONSE TO ATRIAL FLUTTER IS MORE CONTROLLED Electronically Signed On 04-18-2024 09:12:16 CDT by Todd Segundo M.D.
--- NOTE | 2024-04-18 03:05 | PC.NURSE ---
Pt HR up to 180s (noticed by JIGAR Rico) Placed pt on office assistance. Repeat EKG performed. Per EDP [place], pt needs to be monitored for 30 more minutes.
[2024-04-18 03:45] VITALS: BP 136/68; PULSE 80; RESP 20; O2SAT 100
== END 2024-04-18 03:56 | disposition home or self-care (01) ==
PROVIDERS: Emergency Provider Emergency Medicine; PCP Family Medicine Adolescent Medicine
DX: N39.0 Urinary tract infection, site not specified (principal); R53.1 Weakness; I10 Essential (primary) hypertension; E11.9 Type 2 diabetes mellitus without complications; E53.8 Deficiency of other specified B group vitamins; E78.00 Pure hypercholesterolemia, unspecified; I27.20 Pulmonary hypertension, unspecified; F33.0 Major depressive disorder, recurrent, mild; Z87.891 Personal history of nicotine dependence; Z79.84 Long term (current) use of oral hypoglycemic drugs; Z20.822 Contact with and (suspected) exposure to COVID-19
CPT/HCPCS: 36415; 71046; 80053; 81001; 85025; 87077; 87086; 87088; 87186; 87637; 93005; 96365; 99284; J0696

== ENCOUNTER 2024-05-25 18:48 | Observation (INO) | payer MEDICARE, BC, SELFPAY ==
[2024-05-25] VITALS (18 sets, daily range): BP systolic 129–142; BP diastolic 66–119; PULSE 80–98; RESP 18–33; TEMP 37.2–38.3; O2SAT 96–99; BMI 24.7
--- NOTE | ~2024-05-25 | US_ITS ---
US renal BI Ordering provider: Shaye Finch PA-C History: . Acute kidney injury, microscopic hematuria . Comparison: None. Technique: Ultrasound bilateral kidneys. Findings: RIGHT KIDNEY: Measures 11.9x 6.4x 5.6 cm in length which is normal in size. No renal cysts. No renal mass. Echogenic area with no shadowing is noted. Stone cannot be excluded.. Otherwise, normal echotex ture and contour. Moderate hydronephrosis. Normal renal cortical thickness. LEFT KIDNEY: Lobulated outline. Measures 11.6x 5.4x 4.8 cm in length which is normal in size. No mylene l cysts. No renal mass. Echogenic area with no definite shadowing is seen which may be a stone. Follo w-up advised. Otherwise, normal echotexture and contour. Mild hydronephrosis. Normal renal cortical t hickness. BLADDER: Normal. Ureteral jets were not seen bilaterally. IMPRESSION: Moderate hydronephrosis in the right with mild fullness on the left. Echogenic areas in both kidneys with no definite back shadowing. Stones cannot be excluded. Reviewed, dictated and finalized at location A.
--- NOTE | ~2024-05-25 | XR_ITS ---
XR abdomen/kub 1V Ordering provider: Angie Moran PA-C History: . nephrolithiasis . Comparison: None. FINDINGS: BOWEL: Nonobstructive bowel gas pattern. ORGANOMEGALY: None. SIGNIFICANT PATHOLOGIC CALCIFICATIONS: Small calcification in the right kidney area. Calcifications s een in the pelvis most likely phlebolith' s although the one seen medially may be a stone. OTHER: No free air is seen under the diaphragm. Postoperative changes in the spine. IMPRESSION: NO ACUTE ABDOMINAL FINDINGS. Stone in the right kidney. Highly suggestive stone in the area of the urinary bladder. Reviewed, dictated and finalized at location A.
--- NOTE | ~2024-05-25 | XR_ITS ---
Portable chest x-ray Comparison: 04/18/2024 Clinical History: Fever Findings: Lungs are clear, without focal consolidation or pleural effusion. Cardiomediastinal silho uette is stable. Bones and soft tissues are unremarkable. Impression: Clear lungs. Reviewed, dictated and finalized at location . Impression: Clear lungs.
--- NOTE | ~2024-05-25 | CT_ITS ---
CT abdomen pelvis wo con Ordering provider: Shaye Finch History: 78 years Female with . right CVA tenderness, hematuria . Comparison: February 14, 2014 Technique: CT abdomen and pelvis without IV and without oral contrast. Automated exposure control and iterative reconstruction technique were employed. The dose-length product was 416.95 mGy-cm. Findings: VISUALIZED LOWER CHEST: Minimal right pleural effusion and bibasilar dependent atelectatic changes. UPPER ABDOMINAL ORGANS: Liver: Tiny cyst in the segment #6. Gallbladder: Cholelithiasis. Spleen: Normal. Stomach/duodenum: Normal. Pancreas: Normal. Adrenals: Normal. Kidneys: 5 mm Stone in the right kidney midpole with right mild to moderate hydronephrotic changes. T hickening of the wall of the renal pelvis and ureter is seen which may indicate infection. Perirenal fat stranding is seen bilaterally more on the right side. Tiny stone in the left kidney lower pole me asuring 3 mm. Mild left hydronephrosis. Tiny cyst in the medial aspect of the midpole measuring 1 cm. PELVIC ORGANS: The bladder is underfilled. Uterus: Normal. Calcified fibroid is not excluded measurin g 1 cm. No. BOWEL AND MESENTERY: Colon: No evidence of diverticulitis. Diverticulosis. No evidence of appendicitis. Small Bowel: Normal. No obstruction. Peritoneum/mesentery: No free air or free fluid. No mesenteric lymphadenopathy. RETROPERITONEUM: Mild atheromatous disease of the abdominal aorta. No retroperitoneal lymphadenopat hy. MUSCULOSKELETAL: Superficial soft tissues: The superficial soft tissues are normal. Bones: Age appropriate degenerative changes of the spine. Postoperative changes in the lower lumbar a abraham. Bilateral sacroiliitis. Anterolisthesis at the level of L4-L5. Atrophic psoas muscles. IMPRESSION: 1. Cholelithiasis. 2. Bilateral kidney stones with moderate right hydronephrotic changes and mild left. Thickening of t he wall of the right renal pelvis and upper ureter which may indicate infection. Clinical correlation advised. Reviewed, dictated and finalized at location A. IMPRESSION: 1. Cholelithiasis. 2. Bilateral kidney stones with moderate right hydronephrotic changes and mild left. Thickening of the wall of the right renal pelvis and upper ureter which may indicate infection. Clinical correlation advised.
[2024-05-25 19:08] LABS: Basophils Percent Auto 0.2 % (0.2-1.2); Hematocrit 42.2 % (37.0-47.0); Hemoglobin 14.2 g/dL (12.0-15.0); Immature Granulocyte Absolute 0.11 K/mm3 (0.00-0.031); Immature Granulocyte Percent A 0.7 % (0-0.5); Mean Corpuscular HGB Conc 33.6 g/dl (32-36); Mean Corpuscular Hemoglobin 28.4 pg (26-34); Mean Corpuscular Volume 84.4 fl (80-100); Mean Platelet Volume 10.4 fl (7.4-10.4); Monocytes Absolute Auto 0.9 K/mm3 (0.1-0.6); Monocytes Percent Auto 5.1 % (2.6-8.5); Neutrophils Absolute Auto 15.3 K/mm3 (1.3-6.7); Platelet Count Result 201 k/mm3 (150-375); Red Cell Distribution Width 15.9 % (11.5-14.5); White Blood Count 16.8 K/mm3 (4.5-10.0)
[2024-05-25 19:20] LABS: INR 1.3; Prothrombin Time 16.3 Seconds (11.1-14.7)
[2024-05-25 19:21] LABS: Partial Thromboplastin Time 31.3 Seconds (22.3-36.8)
--- NOTE | 2024-05-25 19:44 | ED.GENADULT ---
HPI - General Adult General Chief complaint: Weakness Stated complaint: Weakness, AMS Time Seen by Provider: 05/25/24 18:51 History of Present Illness HPI narrative: 78-year-old female presenting to the emergency department for evaluation for altered mental status. Patient states that she feels fine, maybe little more tired than usual but denies any significant complaint. Patient states that her children were concerned that maybe she had a urinary tract infection so she was encouraged to present to the ED for evaluation. Patient denies any nausea vomiting diarrhea. Patient denies any urinary symptoms. Patient's only complaint is that she states maybe she does feel little more tired than usual. Patient states that she does live at home with her youngest son. Related Data Home Medications Medication Instructions Recorded Confirmed acetaminophen 500 mg tablet 1,000 mg PO Q6H PRN Pain (Scale 05/25/24 05/25/24 Score 1-3) alprazolam 0.5 mg tablet 0.5 mg PO TID PRN Anxiety 05/25/24 05/25/24 aspirin 81 mg tablet 81 mg PO DAILY 05/25/24 05/25/24 atorvastatin 40 mg tablet 40 mg PO HS 05/25/24 05/25/24 celecoxib 100 mg capsule (Celebrex) 100 mg PO QAM 05/25/24 05/25/24 metformin 500 mg tablet,extended 100 mg PO BID 05/25/24 05/25/24 release 24 hr paroxetine HCl 20 mg tablet 20 mg PO BID 05/25/24 05/25/24 polyethylene glycol 3350 17 gram 17 g PO QAM PRN Constipation 05/25/24 05/25/24 oral powder packet (Miralax) Allergies Allergy/AdvReac Type Severity Reaction Status Date / Time No Known Allergies Allergy Verified 04/18/24 00:29 Review of Systems Review of Systems: All systems reviewed & are unremarkable except as noted in HPI and below PMFSH Past Medical History Medical History (Updated 05/25/24 @ 22:15 by Shaye Finch PA-C) Hypertension Major depressive disorder, recurrent, mild Mild dementia Osteoarthritis of knees, bilateral Paroxysmal atrial flutter Pulmonary hypertension Pure hypercholesterolemia, unspecified Type 2 diabetes mellitus without complications Vitamin B12 deficiency Surgical History Surgical History History of lumbar surgery X2 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 Code status: Full code. Smoking packs per day: 0.05 Smoking cigarettes per day: 1.0 Years smoked: 7 Smoking pack-years: 0.35 Smoking status: Former smoker Tobacco type: cigarettes Second hand tobacco smoke exposure: Yes Smoking end date: 02/10/93 Alcohol intake: never Drinks per week: 1 Alcohol use details: Wine. Substance use: never Substance use type: does not use Do You Feel Safe in your Home?: Yes Lack of Transportation: No Lack of Food: Never True Current Housing: I Have Housing Concerned About Future Housing: No Difficulty Paying Gas/Electric Bills: No Difficulty Paying for Meds: No Currently Unemployed: No Education: Bachelor's Degree Difficulty w/ Childcare or Family Care: No Living arrangements: with family Additional living arrangements comments: Lives with son Eduardo. 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 Spiritual care concerns: No Agree to blood products: Yes Exam Narrative: APPEARANCE: Ill-appearing HEAD: normocephalic, atraumatic. EYES: PERRLA/EOMI, conjunctivae clear. NOSE: Normal no drainage EARS:TMS clear with good light reflex. THROAT: Pharynx clear, no exudate. NECK: Supple. No adenopathy, no masses. RESPIRA
[2024-05-25 19:45] LABS: Influenza A QL RT-PCR Negative (Negative); Influenza B QL RT-PCR Negative (Negative); RSV RNA, RT-PCR Negative (Negative); SARS-CoV-2 RNA PCR Negative (Negative)
[2024-05-25 20:00] LABS: Alanine Aminotransferase 16 U/L (6-35); Albumin Level 4.6 g/dL (3.5-5.1); Alkaline Phosphatase 58 U/L (38-126); Anion Gap 15 mmol/L (4-12); Aspartate Amino Transferase 30 U/L (14-36); Bilirubin,Total 1.4 mg/dL (0.2-1.3); Blood Urea Nitrogen 25 mg/dL (7-17); Calcium 9.9 mg/dL (8.4-10.2); Carbon Dioxide 21 mmol/L (22-30); Chloride 97 mmol/L (98-107); Estimated CRCL calculation 23 ml/min; Estimated Glomerular Filt Rate 29; Glucose 239 mg/dL (65-110); Potassium 4.3 mmol/L (3.4-5.0); Sodium 133 mmol/L (137-145)
[2024-05-25] MEDS: SODIUM CHLORIDE 0.9% IV 1,000 ML 999 ML IV CONT (20:37)
[2024-05-25 21:04] LABS: Appearance Urine Turbid (Clear); Bacteria Urine None Seen /hpf; Bilirubin Urine Negative (Negative); Blood Urine 3+ (Negative); Color Urine Yellow (Yellow); Glucose Urine UA 3+ mg/dL (Negative); Ketones Urine Trace mg/dL (Negative); Leukocyte Esterase Ur 2+ LEU/UL (Negative); Need Manual Microscopic Reviewed; Nitrate Urine Negative (Negative); Protein Urine 3+ mg/dL (Negative); RBC Urine 21-50 /hpf (0-2); Specific Grav Ur 1.023 (1.001-1.035); Squamous Epithelial Cell Urine None Seen /hpf (Few); WBC Clumps Urine Present /HPF; WBC Urine >100 /hpf (0-3); pH Urine 5.5 (5.0-9.0)
[2024-05-25 21:05] LABS: Add Urine Microscopic? YES
--- NOTE | 2024-05-25 21:55 | PM.IMHP ---
H&P: HPI History of Present Illness Date/Time: 05/25/24 21:55 Chief Complaint: Weakness, fever, confusion. Narrative: This is a pleasant 78-year-old female with type 2 diabetes mellitus, hypertension, hyperlipidemia, paroxysmal atrial flutter, type 2 diabetes mellitus, and mild dementia who presented to the emergency department for evaluation of weakness, fever, and confusion. The patient provides the following history and her son provides additional information with the patient's permission. She has not felt well for a couple of days with symptoms to include mild dysuria, urinary incontinence, mild right low back discomfort, poor appetite, and decreased oral intake. Son has noticed that she seems to be a bit confused and weaker than normal. They have not taken her temperature however son reports that her face felt warm and is flushed. She denies headache, neck ache, sinus congestion, sore throat, cough, chest pain, vomiting, and diarrhea. She also denies fall, syncope, near syncope, focal weakness, paresthesias, visual changes, facial droop, and difficulty speaking and swallowing. In the ED: Temperature is 100.9? F on arrival. The remainder of her vital signs are stable. Labs are significant for WBC count of 16.8, hemoglobin 14.2, platelet 201, sodium 133, chloride 97, carbon dioxide 25, creatinine 1.70, glucose 238, total bilirubin 1.4. Urine is turbid with 3+ protein, 3+ glucose, trace ketones, 3+ blood, 2+ leukocyte esterase, 21 to 50 RBC, greater than 100 WBC. 6 to 10 casts were noted on microscopy; no bacteria or squamous cells noted. She tested negative for influenza, RSV, and COVID. Chest x-ray showed clear lungs. She was given 1 gm of ceftriaxone and 1 L normal saline she is being admitted for further treatment and evaluation. Review of Systems Review of Systems: 12 systems were reviewed and are negative except for as per HPI. 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 Code status: Full code. Smoking packs per day: 0.05 Smoking cigarettes per day: 1.0 Years smoked: 7 Smoking pack-years: 0.35 Smoking status: Former smoker Tobacco type: cigarettes Second hand tobacco smoke exposure: Yes Smoking end date: 02/10/93 Alcohol intake: never Drinks per week: 1 Alcohol use details: Wine. Substance use: never Substance use type: does not use Do You Feel Safe in your Home?: Yes Lack of Transportation: No Lack of Food: Never True Current Housing: I Have Housing Concerned About Future Housing: No Difficulty Paying Gas/Electric Bills: No Difficulty Paying for Meds: No Currently Unemployed: No Education: Bachelor's Degree Difficulty w/ Childcare or Family Care: No Living arrangements: with family Additional living arrangements comments: Lives with son Eduardo. 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 Spiritual care concerns: No Agree to blood products: Yes Meds Home Medications and Allergies Home Medications Medication Instructions Recorded
--- NOTE | 2024-05-25 22:28 | ADMGEN ---
This patient, Marilu Quintanilla, was admitted to Medical Room 244-. Patient/family oriented to hospital policies and general routines including ID bracelet, bed and alarms, visiting hours, pain management, procedures, bathroom and other care routines, personal items, smoking policy, room service/diet, and visiting hours. Information on how to activate the Rapid Response Team has been discussed. Patient/Family are encouraged to report perceived risks to care and to ask questions if they do not understand what they are told or what they should do.
[2024-05-25 22:36] LABS: Hemoglobin A1C 6.7 % (<5.7)
[2024-05-25] MEDS: PARoxetine 20 MG TABLET PO (23:16)
[2024-05-25] MEDS: ATORVASTATIN 40 MG TABLET PO (23:16)
[2024-05-25] MEDS: SODIUM CHLORIDE 0.9% IV 1,000 ML 100 ML IV CONT (23:24)
[2024-05-26 04:46] VITALS: BP 126/69; PULSE 87; RESP 20; TEMP 37.7; O2SAT 97
[2024-05-26 05:05] LABS: Hematocrit 34.1 % (37.0-47.0); Hemoglobin 11.5 g/dL (12.0-15.0); Mean Corpuscular HGB Conc 33.7 g/dl (32-36); Mean Corpuscular Hemoglobin 28.5 pg (26-34); Mean Corpuscular Volume 84.4 fl (80-100); Mean Platelet Volume 11.2 fl (7.4-10.4); Platelet Count Result 161 k/mm3 (150-375); Red Blood Count 4.04 M/mm3 (4.2-5.4); White Blood Count 11.2 K/mm3 (4.5-10.0)
[2024-05-26 05:21] LABS: Anion Gap 12 mmol/L (4-12); Blood Urea Nitrogen 23 mg/dL (7-17); Calcium 9.1 mg/dL (8.4-10.2); Carbon Dioxide 19 mmol/L (22-30); Chloride 102 mmol/L (98-107); Estimated CRCL calculation 26 ml/min; Estimated Glomerular Filt Rate 34; Glucose 203 mg/dL (65-110); Magnesium 1.5 mg/dL (1.6-2.3); Potassium 3.8 mmol/L (3.4-5.0); Sodium 133 mmol/L (137-145)
--- NOTE | 2024-05-26 06:55 | PM.IMPN ---
Progress Note: A&P Assessment and Plan (1) Bilateral nephrolithiasis: Code(s): N20.0 - Calculus of kidney Status: Acute Assessment and Plan: - Abdomen/pelvis CT: Bilateral kidney stones with moderate right hydronephrotic changes and mild left. Thickening of the wall of the right renal pelvis and upper ureter which may indicate infection - Renal US: Moderate hydronephrosis in the right with mild fullness on the left. Echogenic areas in both kidneys with no definite back shadowing. Stones cannot be excluded. - renally dose medications - avoid nephrotoxic medications - flomax 0.4 mg PO daily - Urology consulted - monitor vitals signs, I/O, patient is a fall risk - monitor CBC and electrolytes (2) Urinary tract infection: Code(s): N39.0 - Urinary tract infection, site not specified Status: Inactive Assessment and Plan: On admission patient endorses mild dysuria, urinary incontinence, mild right low back discomfort. - UA: turbid appearance, 3+ protein, 3+ glucose, trace ketones, 3+ blood, 2+ leukocytes, 21-50 RBC, >100 WBC, WBC clumps present. No bacteria or squamous cells present. - UC obtained on 05/25: pending - No previous micro to be reviewed - started on Ceftriaxone 05/26 (3) Acute kidney injury: Code(s): N17.9 - Acute kidney failure, unspecified Status: Acute Assessment and Plan: BUN/Cr 25/1.70 on admission. Baseline creatinine 1.0. Likely related to patients dehydration and underlying infection, nephrolithiasis and hydronephrosis. - Improving with fluids - Continue IV NS - Abdomen/pelvis CT: Bilateral kidney stones with moderate right hydronephrotic changes and mild left. Thickening of the wall of the right renal pelvis and upper ureter which may indicate infection - Renal US: Moderate hydronephrosis in the right with mild fullness on the left. Echogenic areas in both kidneys with no definite back shadowing. Stones cannot be excluded. - renally dose medications - avoid nephrotoxic medications - monitor vitals signs, I/O, patient is a fall risk - monitor CBC and electrolytes (4) Dehydration: Code(s): E86.0 - Dehydration Status: Acute Assessment and Plan: Patient endorsed decreased oral intake and poor appetite. Labs show mild DENICE and patient appeared dry on initial assessment. - Continue IV NS - Monitor (5) Type 2 diabetes mellitus: Code(s): E11.9 - Type 2 diabetes mellitus without complications Status: Acute Assessment and Plan: - hypoglycemia protocol - POC blood glucose ACHS - home medication - metformin - correct regimen ordered - low dose TIDWM - A1C 05/25: 6.7 (6) Hypertension: Qualifiers: Hypertension type: primary hypertension Qualified Code(s): I10 - Essential (primary) hypertension Code(s): I10 - Essential (primary) hypertension Status: Chronic Assessment and Plan: Chronic, stable on home medications. - Continue atenolol 50 mg daily - Monitor Time Spent With Patient Time with patient: 25 - 35 minutes Subjective Date/time seen: 05/26/24 06:55 Interval history: 78-year-old female with type 2 diabetes mellitus, hypertension, hyperlipidemia, paroxysmal atrial flutter, type 2 diabetes mellitus, and mild dementia who presented to the emergency department for evaluation of weakness, fever, and confusion. Patient is pleasant lying comfortably in bed. She states she is feeling much better and no longer endorses back pain, dysuria, burning, hematuria, or abdominal pain. Abdomen/pelvis CT revealed bilateral nephrolithiasis with noted bilateral hydronephrosis. Patient started on Flomax and urology consulted. Patient denies chest pain, shortness of breath, nausea/vomiting and changes in bowel. Review of Systems Review of Systems: All systems reviewed & are unremarkable except as noted in HPI and below Exam Narrative: AF HR 87 RR 20 SpO2 97 BP 126/69 General: female in no acute re
[2024-05-26 07:50] VITALS: PULSE 76; RESP 18; O2SAT 97
[2024-05-26 07:55] LABS: Glucose Point of Care 172 mg/dl (65-105)
[2024-05-26] MEDS: ENOXAPARIN 30 MG/0.3 ML SYRINGE SUB-Q (08:47)
[2024-05-26] MEDS: PARoxetine 20 MG TABLET PO ×2 (08:47→17:48)
[2024-05-26 08:48] VITALS: PULSE 76
[2024-05-26] MEDS: ASPIRIN 81 MG CHEWABLE TABLET PO (08:48)
[2024-05-26] MEDS: atenoloL 50 MG TABLET PO (08:48)
[2024-05-26 08:49] VITALS: PULSE 76; RESP 18; O2SAT 97
[2024-05-26] MEDS: CYANOCOBALAMIN 1,000 MCG TABLET 1000 MCG PO (08:49)
[2024-05-26] MEDS: SODIUM CHLORIDE 0.9% IV 1,000 ML 100 ML IV CONT ×2 (11:03→21:10)
[2024-05-26 11:37] LABS: Glucose Point of Care 230 mg/dl (65-105)
[2024-05-26] MEDS: INSULIN ASPART (*BKC) 100 UNITS/ML SUB-Q ×2 (11:40→21:15)
[2024-05-26 13:55] VITALS: BP 132/69; PULSE 67; RESP 16; TEMP 36.9; O2SAT 97
--- NOTE | 2024-05-26 15:34 | WPDURCON ---
Assessment and Plan Assessment and plan (1) Bilateral nephrolithiasis: Code(s): N20.0 - Calculus of kidney Status: Acute Assessment and Plan: Noted to have 5 mm right renal stone and 3 mm left renal stone. Relatively asymptomatic at this time. Will obtain KUB to assess for stone disability. May consider outpatient treatment of right renal stone given size. (2) Hydronephrosis: Code(s): N13.30 - Unspecified hydronephrosis Status: Acute Assessment and Plan: Noted to have [id number] right hydronephrosis as well as mild left hydronephrosis. Unlikely to be related to renal stones. No evidence of bladder distention. Obtain bladder scan to ensure emptying adequately. Will continue to monitor (3) Abnormal urinalysis: Code(s): R82.90 - Unspecified abnormal findings in urine Status: Acute Assessment and Plan: UA abnormal, concerning for UTI. Urine culture pending at this time. Continue empiric antibiotics while awaiting urine culture results. Urology Consult Note HPI Date Seen: 05/26/24 Requesting Physician: Angie Moran PA-C Primary Care Provider: Ruel Barfield MD Consult Narrative Narrative: Marilu Quintanilla is a 78 year old female with no prior urologic history who is currently admitted for weakness secondary to suspected UTI who is being seen in consultation for evaluation of bilateral renal stones. Patient's son is present at the bedside to help supplement the patient's history. She reportedly had some back pain a couple days prior to presentation and slowly developed increased confusion. She presented to the ER on 05/25/2024 due to concerns of confusion and fatigue. On presentation, she was found to have low-grade fever of 100.9?, additional vital signs were stable, WBC 11.2, creatinine 1.5, UA positive blood, positive leukocytes, negative nitrites, >100 WBC, no bacteria. Urine culture is pending at this time. CT of the abdomen/pelvis showed a 5 mm stone in the right midpole with [id number] right hydronephrosis, thickening of the right renal pelvis possibly indicative of infection, and a 3 mm left renal stone. She denies history of prior stones. She denies dysuria, hematuria, urgency, frequency. No flank pain, abdominal pain, suprapubic pain. 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 Code status: Full code. Smoking packs per day: 0.05 Smoking cigarettes per day: 1.0 Years smoked: 7 Smoking pack-years: 0.35 Smoking status: Former smoker Tobacco type: cigarettes Second hand tobacco smoke exposure: Yes Smoking end date: 02/10/93 Alcohol intake: never Drinks per week: 1 Alcohol use details: Wine. Substance use: never Substance use type: does not use Do You Feel Safe in your Home?: Yes Lack of Transportation: No Lack of Food: Never True Current Housing: I Have Housing Concerned About Future Housing: No Difficulty P
[2024-05-26 16:45] LABS: Glucose Point of Care 190 mg/dl (65-105)
[2024-05-26 20:11] LABS: Glucose Point of Care 207 mg/dl (65-105)
[2024-05-26 21:07] VITALS: BP 150/83; PULSE 83; RESP 18; TEMP 37.2; O2SAT 100
[2024-05-26] MEDS: ATORVASTATIN 40 MG TABLET PO (21:12)
[2024-05-27 05:30] VITALS: BP 122/83; PULSE 80; RESP 18; TEMP 36.6; O2SAT 99
[2024-05-27 08:20] LABS: Basophils Percent Auto 0.3 % (0.2-1.2); Eosinophils Percent Auto 0.6 % (0-4.4); Hematocrit 33.3 % (37.0-47.0); Immature Granulocyte Absolute 0.04 K/mm3 (0.00-0.031); Immature Granulocyte Percent A 0.6 % (0-0.5); Lymphocytes Percent Auto 7.7 % (18.3-44.2); Mean Corpuscular Hemoglobin 28.6 pg (26-34); Mean Corpuscular Volume 86.5 fl (80-100); Mean Platelet Volume 10.2 fl (7.4-10.4); Monocytes Absolute Auto 0.6 K/mm3 (0.1-0.6); Neutrophils Absolute Auto 5.3 K/mm3 (1.3-6.7); Neutrophils Percent Auto 81.8 % (45.5-73.1); Platelet Count Result 146 k/mm3 (150-375); Red Blood Count 3.85 M/mm3 (4.2-5.4); White Blood Count 6.5 K/mm3 (4.5-10.0)
[2024-05-27 08:21] LABS: Glucose Point of Care 179 mg/dl (65-105)
[2024-05-27 08:34] VITALS: PULSE 80
[2024-05-27] MEDS: atenoloL 50 MG TABLET PO (08:34)
[2024-05-27] MEDS: CYANOCOBALAMIN 1,000 MCG TABLET 1000 MCG PO (08:34)
[2024-05-27] MEDS: ASPIRIN 81 MG CHEWABLE TABLET PO (08:34)
[2024-05-27] MEDS: PARoxetine 20 MG TABLET PO (08:34)
[2024-05-27] MEDS: ENOXAPARIN 30 MG/0.3 ML SYRINGE SUB-Q (08:35)
[2024-05-27] MEDS: SODIUM CHLORIDE 0.9% IV 1,000 ML 100 ML IV CONT (08:35)
[2024-05-27 08:36] LABS: Alanine Aminotransferase 16 U/L (6-35); Albumin Level 3.2 g/dL (3.5-5.1); Alkaline Phosphatase 54 U/L (38-126); Anion Gap 8 mmol/L (4-12); Aspartate Amino Transferase 27 U/L (14-36); Bilirubin,Total 0.8 mg/dL (0.2-1.3); Blood Urea Nitrogen 20 mg/dL (7-17); Calcium 8.6 mg/dL (8.4-10.2); Carbon Dioxide 22 mmol/L (22-30); Chloride 105 mmol/L (98-107); Estimated CRCL calculation 32 ml/min; Estimated Glomerular Filt Rate 43; Glucose 179 mg/dL (65-110); Potassium 3.6 mmol/L (3.4-5.0); Sodium 135 mmol/L (137-145)
--- NOTE | 2024-05-27 09:50 | WPDUROPN2 ---
Progress Note: A&P Assessment and Plan (1) Bilateral nephrolithiasis: Code(s): N20.0 - Calculus of kidney Status: Acute Assessment and Plan: Noted to have 5 mm right renal stone and 3 mm left renal stone. Remains asymptomatic. KUB completed to assess stone visibility, shows visible right renal stone as well as questionable bladder stone, though feel this is more likely a phlebolith. Consider right ESWL as an outpatient given stone size. (2) Hydronephrosis: Code(s): N13.30 - Unspecified hydronephrosis Status: Acute Assessment and Plan: Noted to have [id number] right hydronephrosis as well as mild left hydronephrosis. Unlikely to be related to renal stones. No evidence of bladder distention. Obtain bladder scan to ensure emptying adequately, does not appear this has been completed. Will continue to monitor (3) Abnormal urinalysis: Code(s): R82.90 - Unspecified abnormal findings in urine Status: Acute Assessment and Plan: UA abnormal, concerning for UTI. Urine culture pending at this time. Continue empiric antibiotics while awaiting urine culture results. Subjective Subjective Date/Time Seen: 05/27/24 09:50 Interval history: Marilu is feeling well today. Appears more alert. Denies nausea, vomiting, fever, chills, flank pain, back pain. Review of Systems Review of Systems: All systems reviewed & are unremarkable except as noted in HPI and below Exam Narrative: General: Awake, alert, comfortable, no acute distress HEENT: Normocephalic, atraumatic, sclerae anicteric Respiratory: Normal respiratory effort, no accessory muscle use Abdomen: Nondistended, soft, nontender Skin: Normal coloration, warm and dry Neurologic: No focal neuro deficits noted Psychiatric: Appropriate mood and affect, judgment and insight intact Objective Data Vital Signs Vital Signs: Vital Signs - 24 hr 05/26/24 11:52 05/26/24 13:55 05/26/24 21:07 Temperature 98.4 F 99.0 F Pulse Rate 67 83 Respiratory Rate 16 18 Blood Pressure 132/69 150/83 H Pulse Oximetry 97 100 Oxygen Delivery Room Air 05/26/24 21:15 05/27/24 05:30 05/27/24 08:34 Temperature 97.8 F Pulse Rate 80 80 Respiratory Rate 18 Blood Pressure 122/83 Pulse Oximetry 99 Oxygen Delivery Room Air Intake/Output Intake/Output: Intake & Output 05/24/24 05/25/24 05/26/24 05/27/24 23:59 23:59 23:59 23:59 Intake Total 1050 3290.0 1420 Output Total 550 500 Balance 1050 2740.0 920 Meds/Results Medications: Active Medications Generic Name Dose Route Start Last Admin Trade Name Freq PRN Reason Stop Dose Admin Acetaminophen 650 mg 05/25/24 22:04 Acetaminophen 325 Mg Tablet PO Q6H PRN Mild Pain (1-3) or Fever Aspirin 81 mg 05/26/24 09:00 05/27/24 08:34 Aspirin 81 Mg Chewable Tablet PO 81 mg DAILY DIMAS Administration Atenolol 50 mg 05/26/24 09:00 05/27/24 08:34 Atenolol 50 Mg Tablet PO 50 mg DAILY DIMAS Administration Atorvastatin Calcium 40 mg 05/25/24 22:50 05/26/24 21:12 Atorvastatin 40 Mg Tablet PO 40 mg HS DIMAS Administration Cyanocobalamin 1,000 mcg 05/26/24 09:00 05/27/24 08:34 Cyanocobalamin 1,000 Mcg Tablet PO 1,000 mcg DAILY DIMAS Administration Dextrose 12.5 gm 05/25/24 22:04 Dextrose 50% 25 Gm/50 Ml Syringe IV PUSH PRN PRN Hypoglycemia Protocol Enoxaparin Sodium 30 mg 05/26/24 09:00 05/27/24 08:35 Enoxaparin 30 Mg/0.3 Ml Syringe SUB-Q 30 mg DAILY DIMAS Administration Glucagon 1 mg 05/25/24 22:04 Glucagon For Inj 1 Mg Vial IM PRN PRN Hypoglycemia Protocol Glucose 15 gm 05/25/24 22:04 Glucose Oral Gel 15 Gm Of Glucse In 37.5 Gm Tube PO PRN PRN Hypoglycemia Protocol Ceftriaxone Sodium 1 gm in 50 mls @ 100 mls/hr 05/26/24 21:00 05/26/24 21:44 Rocephin 1 Gm/Ns 50 Ml IVPB Infused Q24H DIMAS Infusion [place]
[2024-05-27 12:20] LABS: Glucose Point of Care 188 mg/dl (65-105)
--- NOTE | 2024-05-27 13:06 | PM.DS ---
DS: Admitting Diagnosis Discharge Date 05/27/2024 Admitting Diagnosis bilateral nephrolithiasis urinary tract infection acute kidney injury dehydration type 2 diabetes mellitus essential hypertension DS: Discharge Diagnosis Discharge Diagnosis (1) Bilateral nephrolithiasis: Code(s): N20.0 - Calculus of kidney Status: Acute (2) DENICE (acute kidney injury): Code(s): N17.9 - Acute kidney failure, unspecified Status: Acute (3) Urinary tract infection: Code(s): N39.0 - Urinary tract infection, site not specified Status: Inactive (4) Dehydration: Code(s): E86.0 - Dehydration Status: Acute (5) Hypertension: Qualifiers: Hypertension type: primary hypertension Qualified Code(s): I10 - Essential (primary) hypertension Code(s): I10 - Essential (primary) hypertension Status: Chronic (6) Type 2 diabetes mellitus: Code(s): E11.9 - Type 2 diabetes mellitus without complications Status: Acute DS: Summary Hospital Course Reason for hospitalization: bilateral nephrolithiasis urinary tract infection acute kidney injury dehydration type 2 diabetes mellitus essential hypertension Hospital Course: 78-year-old female with type 2 diabetes mellitus, hypertension, hyperlipidemia, paroxysmal atrial flutter, type 2 diabetes mellitus, and mild dementia who presented to the emergency department for evaluation of weakness, fever, and confusion. on admission patient had a fever of 100.9, with leukocytosis noted on CBC, and DENICE on chemistry. A urinalysis was obtained and was concerning for UTI. Patient was started on Rocephin at that time. Patient was started on IV fluids and the DENICE continued to improve. An Abdomen/pelvis CT was obtained and revealed Bilateral kidney stones (5mm right, 3mm left) with moderate right hydronephrotic changes and mild left. Thickening of the wall of the right renal pelvis and upper ureter which may indicate infection. a renal ultrasound was obtained and revealed Moderate hydronephrosis in the right with mild fullness on the left. Echogenic areas in both kidneys with no definite back shadowing. Stones cannot be excluded. Urology was consulted at that time. Urology ordered a KUB which showed stone in the right kidney and a highly suggestive stone in the urinary bladder. Nursing obtained a bladder scan postvoid which was negative for urinary retention. Patient remains asymptomatic at time of discharge. She is to follow-up with Urology outpatient for a possible right ESWL. At time of discharge patient was transitioned from Rocephin to Augmentin. Discussed with patient that if there is a need to change this antibiotic based on the urine culture sensitivities she will receive a phone call and the antibiotic will be sent to her pharmacy. Patient discharged home in a stable condition. She is to complete her antibiotic as prescribed and follow-up with Urology in 2 weeks. Patient is also to follow up with her primary care provider in 1-2 weeks. Status at Discharge Functional status at discharge: independent ambulation Time Spent with Patient Time attestation: Total time spent providing and/or coordinating discharge services: Time spent: Greater than 30 minutes Exam Narrative: AF HR 80 RR 18 SpO2 99 BP 122/83 General: female in no acute respiratory distress who is nontoxic appearing, lying semi recumbent in bed. HEENT: Extraocular movement intact. Sclera clear and anicteric. No facial asymmetry. Chest: Lungs are clear to auscultation bilaterally. No wheezes or crackles. CV: Heart was regular rate and rhythm. S1-S2. No murmurs, gallops, or rubs. Abd: Abdomen was soft. Nontender. Nondistended. Positive bowel sounds. No CVA tenderness. No organomegaly or masses. Ext: No clubbing, cyanosis, or edema. 2+ DP pulses bilaterally. Neuro: Alert and oriented x4. Speech is clear. DS: Data Data Completed and Pending Completed studies du
--- NOTE | 2024-06-02 08:34 | PC.NURSE ---
Urine culture is negative.
== END 2024-05-27 15:05 | disposition home or self-care (01) ==
LOC: ANHED 19:00 → ANH2MED 21:59
PROVIDERS: Physician Assistant; Admitting Provider Internal Medicine; Emergency Provider Emergency Medicine; PCP Family Medicine Adolescent Medicine; Visit Provider Student in an Organized Health Care Education/Training Program
DX: N17.9 Acute kidney failure, unspecified (principal); N13.30 Unspecified hydronephrosis; N20.0 Calculus of kidney; R82.90 Unspecified abnormal findings in urine; R53.1 Weakness; E86.0 Dehydration; I10 Essential (primary) hypertension; I48.92 Unspecified atrial flutter; F03.A0 Unspecified dementia, mild, without behavioral disturbance, psychotic disturbance, mood disturbance, and anxiety; F33.0 Major depressive disorder, recurrent, mild; I27.20 Pulmonary hypertension, unspecified; E78.00 Pure hypercholesterolemia, unspecified; Z20.822 Contact with and (suspected) exposure to COVID-19; E11.9 Type 2 diabetes mellitus without complications; E53.8 Deficiency of other specified B group vitamins; Z79.84 Long term (current) use of oral hypoglycemic drugs; Z79.82 Long term (current) use of aspirin; Z87.891 Personal history of nicotine dependence
CPT/HCPCS: 36415; 71045; 74018; 74176; 76775; 80048; 80053; 81001; 82948; 83036; 83735; 85025; 85027; 85610; 85730; 87086; 87637; 96361; 96365; 96366; 96372; 97161; 97165; 99285; A9270; G0378; J0696; J1650; J1815; J7030